=== PATIENT | female | born 1985 | race Caucasian/White ===

== ENCOUNTER 2016-11-22 13:45 | Emergency (ER) | payer OTHER ==
[~2016-11-22] VITALS: Ht 154.9 cm; Wt 132.9 kg
[~2016-11-22 13:45] MED LIST: ACET325T96 PO; BUSP15TA70 PO; IBUP-103 PO; LEVO200T6 PO; PRENTAB26 PO; TOPI100T20 PO
[2016-11-22 13:51] VITALS: TEMP 36.9; Ht 154.9 cm; Wt 132.9 kg
[2016-11-22] MEDS ORDERED: ATV1 PO (14:59)
[2016-11-22] MEDS ORDERED: WLLXL300 PO (14:59)
[2016-11-22] MEDS ORDERED: TRAZ100T29 PO (14:59)
[2016-11-22] MEDS ORDERED: KETOROLAC TROMETHAMINE 30 MG/ML VIAL IV STA (15:19)
[2016-11-22] MEDS ORDERED: SODIUM CHLORIDE 0.9% 1000ML 1,000 ML IV STA (15:19)
[2016-11-22 15:54] VITALS: O2SAT 97
[2016-11-22 15:55] LABS: BASO % 0.4 %; BASO ABS # 0.04 K/uL (0-0.2); COMPLETE YES; EOS % 2.4 %; HEMATOCRIT 41.7 % (37-47); IG% 0.7 %; LYMPH % 29.8 %; LYMPH ABS # 3.16 K/uL (1.2-3.4); MEAN CELL VOLUME 84.6 fL (80-100); MEAN CORPUSCULAR HEMOGLOBIN 28.6 pg (25-34); MEAN CORPUSCULAR HGB CONC 33.8 g/dl (32-36); MEAN PLATELET VOLUME 9.4 fL (7.4-10.4); MONO % 6.9 %; NEUT % 59.8 %; PLATELET COUNT 337 K/uL (130-400); RED BLOOD COUNT 4.93 M/uL (4.2-5.4); WHITE BLOOD COUNT 10.62 K/uL (4.8-10.8)
[2016-11-22 16:11] LABS: BUN/CREATININE RATIO 13.8 (10-20); CALCIUM 9.3 mg/dl (8.5-10.1); CREATININE 0.79 mg/dl (0.60-1.20); POTASSIUM 3.8 mmol/L (3.5-5.1)
--- NOTE | 2016-11-22 17:43 | DIAGNOSTIC IMAGING REPORT ---
BILATERAL LOWER EXTREMITY VENOUS DOPPLER HISTORY: Bilateral lower extremity pain COMPARISON STUDY: None. FINDINGS: There is normal compressibility, flow, and augmentation within the bilateral lower extremity deep venous systems. IMPRESSION: No DVT within the right or left lower extremity. Electronically signed by: Ernie South M.D. 11/22/2016 5:41 PM Dictated Date/Time: 11/22/2016 5:41 PM
--- NOTE | 2016-11-22 17:44 | DIAGNOSTIC IMAGING REPORT ---
PELVIC ULTRASOUND, TRANSABDOMINAL AND TRANSVAGINAL HISTORY: Lower abdominal pain. COMPARISON: None. FINDINGS: Uterus: 9.1 x 4.7 x 4.9 cm. There are few nabothian cysts. Endometrial stripe: Top normal in thickness measuring up to 1.3 cm. Right ovary: Normal in size and demonstrates normal color flow. A few small follicles/cysts. Left ovary: Normal in size and demonstrates normal color flow. A few small follicles/cysts. Miscellaneous:No pelvic free fluid. IMPRESSION: No significant abnormality identified within the pelvis. Electronically signed by: Ernie South M.D. 11/22/2016 5:43 PM Dictated Date/Time: 11/22/2016 5:41 PM
[2016-11-22] MEDS ORDERED: OXYCODONE HCL IR 5 MG TAB (IMMEDIATE RELEASE) PO STA (19:06)
[2016-11-22 19:35] LABS: URINE APPEARANCE TURBID (CLEAR); URINE COLOR ORANGE; URINE NITRITE POS (NEG); URINE PH 5.5 (4.5-7.5); URINE SPECIFIC GRAVITY 1.045 (1.000-1.030); UROBILINOGEN NEG (NEG)
[2016-11-22 19:37] LABS: MANUAL MICROSCOPIC REQUIRED? YES; REVIEW REQ? NO
[2016-11-22 19:44] LABS: URINE BILIRUBIN NEG (NEG)
[2016-11-22 19:46] LABS: URINE MUCUS PRESENT (NONE PRSENT)
[2016-11-22 19:47] LABS: URINE BACTERIA NEG (NEG); URINE RBC 0-4 /hpf (0-4)
[2016-11-22 19:48] LABS: URINE AMORPHOUS SEDIMENT PRESENT (NONE PRSENT)
--- NOTE | 2016-11-22 20:15 | DIAGNOSTIC IMAGING REPORT ---
ABDOMEN AND PELVIS CT WITHOUT CONTRAST CT DOSE: 2112.22 mGy.cm HISTORY: Hematuria - pelvic/low back pain TECHNIQUE: Multiaxial CT images of the abdomen and pelvis were performed without contrast. COMPARISON STUDY: Abdomen and pelvis CT 08/15/2015. FINDINGS: The lung bases are clear. No pneumoperitoneum. No pneumatosis. No fractures within the visualized osseous structures. Cholecystectomy. Hepatic steatosis. The unenhanced spleen, adrenal glands, pancreas, and kidneys are unremarkable. No renal stones or hydronephrosis. Retroperitoneal lymph nodes remain stable. These are subcentimeter in short axis diameter. The bladder is nondistended but appears unremarkable. The uterus is within normal limits. There are few small ovarian cysts with the largest on the left measuring 2 cm. No significant pelvic free fluid. Suboptimal evaluation for bowel pathology due to the lack of intravenous and oral contrast. However, there is no definite bowel wall thickening or obstruction. Colonic diverticulosis. Normal appendix. IMPRESSION: 1. No definite bowel wall thickening or obstruction. 2. Colonic diverticulosis. 3. Normal appendix. 4. Hepatic steatosis. 5. Cholecystectomy. 6. Bilateral ovarian cysts with the largest on the left measuring 2 cm. Electronically signed by: Ernie South M.D. 11/22/2016 8:14 PM Dictated Date/Time: 11/22/2016 8:05 PM
--- NOTE | 2016-11-22 20:30 | EMERGENCY ROOM VISIT NOTE ---
ED Visit Note First contact with patient: 15:06 Patient was seen by our PA/PROPERTY ADMINISTRATOR. I was involved in the patient's care and did evaluate the patient myself. I was involved in the care throughout the ER stay. The patient's laboratory workup reveals a possible urinary tract infection. Imaging does not show anything acutely surgical. The patient does not seem toxic and I do think can be discharged home. She can return for worsening symptoms.
[2016-11-22] MEDS ORDERED: NITR-5 PO (20:52)
[2016-11-22] MEDS ORDERED: ACET-749 PO (20:52)
--- NOTE | 2016-11-22 20:57 | EMERGENCY ROOM VISIT NOTE ---
History First contact with patient: 15:06 Chief Complaint: ABDOMINAL PAIN Stated Complaint: PAIN IN BOTH SIDES AND DOWN LEGS Nursing Triage Summary: Triage note: Pt ambulatory to triage. pt reports abd pain in both sides x several days. pt reports nausea and vomitting. History of Present Illness The patient is a 30 year old female who presents to the Emergency Room with complaints of lower abdominal pain and cramping in both legs. The patient reports that her symptoms have been ongoing for the past 2-3 days. She has had nausea and vomiting as well. She denies any urinary symptoms, constipation or diarrhea. The patient has a known history of endometriosis and ovarian cysts. The patient has had a bilateral salpingectomy and unilateral oophorectomy, site unknown. The surgery was performed at [facility]. She has had no further postoperative follow-up because of her insurance. She is scheduled to see an NURSE SPECIAL on 12/06/16. The patient reports that she has had worsening abdominal pain since her surgery, stating that the surgery "did not work". She also admits to a history of chronic lower back pain. Her last pain exacerbation was approximately 2-4 months ago. She denies any recent injury to her back. She denies any lower extremity weakness, foot drop, saddle paresthesias or difficulty with urination/bowel movements. She is concerned that she could have blood clots in her legs as her sister has had a prior history. She has not contacted her family doctor regarding her symptoms, and currently rates her discomfort a 10 out of 10. Review of Systems HEENT: Denies dizziness, visual problems, hearing loss, tinnitus. Denies difficulty swallowing or oral lesions. PULMONARY: Has had a recent nonproductive cough, but denies shortness of breath , sputum production or hemoptysis. CARDIOVASCULAR: Denies chest pain, palpitations, dyspnea on exertion, orthopnea or peripheral edema. GASTROINTESTINAL: Denies diarrhea, constipation, nausea, vomiting, or abdominal pain. GENITOURINARY: Denies dysuria, frequency, urgency or nocturia. NEUROLOGIC: Denies history of epilepsy, CVA, TIA or chronic headaches. MUSCULOSKELETAL: Denies history of joint tenderness/swelling. SKIN: Denies rashes or lesions. PSYCHIATRIC: History of ADHD and bipolar disorder. ENDOCRINE: Denies history of diabetes. Has a history of hypothyroidism. Past Medical/Surgical History Medical Problems: (1) Asthma (2) Attn Deficit W Hyperact (3) Bipolar Disorder, Unspecified (4) Endometriosis Nos (5) Hypothyroidism Nos (6) Morbid Obesity (7) Ovarian cyst (8) Polycystic Ovaries Surgical Problems: (1) History of cholecystectomy (2) S/P cholecystectomy Family History Blood clots Cancer Diabetes mellitus Gallbladder disease Headache Heart disease Hypertension Seizures Social History Smoking Status: Never Smoker Alcohol Use: occasionally Drug Use: none Marital Status: single Housing Status: lives alone Occupation Status: unemployed Current/Historical Medications Scheduled Bupropion HCl (Bupropion HCl Xl), 300 MG PO QAM Buspirone Hcl (Buspar), 15 MG PO TID Levothyroxine Sodium (Levothyroxine Sodium), 200 MCG PO DAILY Nitrofurantoin Monohyd Macrocr (Macrobid), 100 MG PO BID Topiramate (Topamax), 200 MG PO HS Trazodone Hcl (Trazodone), 100 MG PO HS Scheduled PRN Acetaminophen Tab (Tylenol), 650 MG PO Q6 PRN for Pain Acetaminophen/Codeine (Tylenol W/Codeine #3), 1-2 TABS PO q4-6h PRN for Pain Ibuprofen Tab (Advil), 400 MG PO Q6 PRN for Pain Lorazepam (Lorazepam), 1 MG PO BID PRN for Anxiety Allergies Coded Allergies: Wheat (Verified Allergy, Intermediate, HIVES, 09/18/16) Food Additives (Verified Allergy, Unknown, WHEAT, 09/18/16) Metformin (Verified Allergy, Unknown, UNKN, 09/18/16) Soy Allergy (Unverified Allergy, Unknown, unknown, 11/22/16) Penicillins (Verified Adverse Reaction, Intermediate, GI SYMPTOMS, 09/18/16 ) Morphine (Verified Adverse Reaction, Unknown, "makes me sick", 09/18/16) Physical Exam Vital Signs Date Time Temp Pulse Resp B/P Pulse Ox O2 Delivery O2 Flow Rate FiO2 11/22/16 21:25 69 20 132/89 99 11/22/16 19:19 66 20 135/94 95 Room Air 11/22/16 17:54 68 11/22/16 17:42 76 18 103/76 98 Room Air 11/22/16 15:54 97 Room Air 11/22/16 15:54 74 22 138/99 99 Room Air 11/22/16 13:51 36.9 90 18 156/92 100 Room Air Physical Exam CONSTITUTIONAL: Morbidly obese female, alert and oriented X 3 with positive affect. Patient is not. Any acute distress on my exam. HEENT: Normocephalic, atraumatic. Pupils equal, round and reactive. No scleral icterus or conjunctival injection/pallor. : No posterior pharyngeal erythema, tonsillar hypertrophy or exudates. NECK: Full active range of motion without discomfort. No JVD or carotid bruits. RESPIRATORY: Clear to auscultation bilaterally with no wheezing, crackles, rhonchi or stridor. CARDIOVASCULAR: Regular rate and rhythm with no murmurs, rubs or gallops. GASTROINTESTINAL: Bowel sounds present in all quadrants. Patient has mild and diffuse tenderness to palpation through the lower abdomen. Negative Rovsing sign. Negative heel tap. Negative psoas/obturator sign. Negative CVA tenderness. MUSCULOSKELETAL: Full range of motion of all joints without discomfort. Patient has mild tenderness to palpation through the lower back and SI joints. Negative logroll. Negative straight leg raise. No popliteal masses. No calf tenderness to palpation. Pedal pulses are intact. No obvious peripheral edema. Ankle plantar/dorsiflexion strength is 5 out of 5 and symmetric bilaterally. INTEGUMENTARY: No rash or other significant dermatologic conditions noted. HEMATOLOGIC: No ecchymosis or petechiae noted. NEUROLOGIC: Cranial nerves II-XII grossly intact. No focal neurologic deficits noted. Lower extremity deep tendon reflexes are 2+ and symmetric bilaterally. Medical Decision & Procedures ER Provider Diagnostic Interpretation: Bilateral lower extremity venous ultrasound shows no evidence for deep vein thromboses. Radiologist report is as follows: BILATERAL LOWER EXTREMITY VENOUS DOPPLER HISTORY: Bilateral lower extremity pain COMPARISON STUDY: None. FINDINGS: There is normal compressibility, flow, and augmentation within the bilateral lower extremity deep venous systems. IMPRESSION: No DVT within the right or left lower extremity. Pelvic ultrasound shows 2 ovaries with bilateral cysts. No other acute findings noted. Radiologist report is as follows: PELVIC ULTRASOUND, TRANSABDOMINAL AND TRANSVAGINAL HISTORY: Lower abdominal pain. COMPARISON: None. FINDINGS: Uterus: 9.1 x 4.7 x 4.9 cm. There are few nabothian cysts. Endometrial stripe: Top normal in thickness measuring up to 1.3 cm. Right ovary: Normal in size and demonstrates normal color flow. A few small follicles/cysts. Left ovary: Normal in size and demonstrates normal color flow. A few small follicles/cysts. Miscellaneous:No pelvic free fluid. IMPRESSION: No significant abnormality identified within the pelvis. Noncontrast CT of the abdomen and pelvis shows bilateral ovarian cysts. Otherwise, no acute obstruction, appendicitis or other acute findings noted. Radiologist report is as follows: ABDOMEN AND PELVIS CT WITHOUT CONTRAST CT DOSE: 2112.22 mGy.cm HISTORY: Hematuria - pelvic/low back pain TECHNIQUE: Multiaxial CT images of the abdomen and pelvis were performed without contrast. COMPARISON STUDY: Abdomen and pelvis CT 08/15/2015. FINDINGS: The lung bases are clear. No pneumoperitoneum. No pneumatosis. No fractures within the visualized osseous structures. Cholecystectomy. Hepatic steatosis. The unenhanced spleen, adrenal glands, pancreas, and kidneys are unremarkable. No renal stones or hydronephrosis. Retroperitoneal lymph nodes remain stable. These are subcentimeter in short axis diameter. The bladder is nondistended but appears unremarkable. The uterus is within normal limits. There are few small ovarian cysts with the largest on the left measuring 2 cm. No significant pelvic free fluid. Suboptimal evaluation for bowel pathology due to the lack of intravenous and oral contrast. However, there is no definite bowel wall thickening or obstruction. Colonic diverticulosis. Normal appendix. IMPRESSION: 1. No definite bowel wall thickening or obstruction. 2. Colonic diverticulosis. 3. Normal appendix. 4. Hepatic steatosis. 5. Cholecystectomy. 6. Bilateral ovarian cysts with the largest on the left measuring 2 cm. Laboratory Results 11/22/16 15:43 Red Blood Count 4.93, Mean Corpuscular Volume 84.6, Mean Corpuscular Hemoglobin 28.6, Mean Corpuscular Hemoglobin Concent 33.8, Mean Platelet Volume 9.4, Neutrophils (%) (Auto) 59.8, Lymphocytes (%) (Auto) 29.8, Monocytes (%) (Auto) 6.9, Eosinophils (%) (Auto) 2.4, Basophils (%) (Auto) 0.4, Neutrophils # (Auto) 6.36, Lymphocytes # (Auto) 3.16, Monocytes # (Auto) 0.73, Eosinophils # (Auto) 0.26, Basophils # (Auto) 0.04 11/22/16 15:43 Test 11/22/16 15:43 11/22/16 19:21 White Blood Count 10.62 K/uL (4.8-10.8) Red Blood Count 4.93 M/uL (4.2-5.4) Hemoglobin 14.1 g/dL (12.0-16.0) Hematocrit 41.7 % (37-47) Mean Corpuscular Volume 84.6 fL (80-100) Mean Corpuscular Hemoglobin 28.6 pg (25-34) Mean Corpuscular Hemoglobin Concent 33.8 g/dl (32-36) Platelet Count 337 K/uL (130-400) Mean Platelet Volume 9.4 fL (7.4-10.4) Neutrophils (%) (Auto) 59.8 % Lymphocytes (%) (Auto) 29.8 % Monocytes (%) (Auto) 6.9 % Eosinophils (%) (Auto) 2.4 % Basophils (%) (Auto) 0.4 % Neutrophils # (Auto) 6.36 K/uL (1.4-6.5) Lymphocytes # (Auto) 3.16 K/uL (1.2-3.4) Monocytes # (Auto) 0.73 K/uL (0.11-0.59) Eosinophils # (Auto) 0.26 K/uL (0-0.5) Basophils # (Auto) 0.04 K/uL (0-0.2) RDW Standard Deviation 41.5 fL (36.4-46.3) RDW Coefficient of Variation 13.6 % (11.5-14.5) Immature Granulocyte % (Auto) 0.7 % Immature Granulocyte # (Auto) 0.07 K/uL (0.00-0.02) Anion Gap 9.0 mmol/L (3-11) Est Creatinine Clear Calc Drug Dose 132.0 ml/min Estimated GFR () 114.8 Estimated GFR (Non- 99.1 BUN/Creatinine Ratio 13.8 (10-20) Calcium Level 9.3 mg/dl (8.5-10.1) Total Bilirubin 0.4 mg/dl (0.2-1) Direct Bilirubin 0.2 mg/dl (0-0.2) Aspartate Amino Transf (AST/SGOT) 41 U/L (15-37) Alanine Aminotransferase (ALT/SGPT) 101 U/L (12-78) Alkaline Phosphatase 111 U/L (45-117) Total Protein 7.6 gm/dl (6.4-8.2) Albumin 3.8 gm/dl (3.4-5.0) Lipase 162 U/L (73-393) Urine Color ORANGE Urine Appearance TURBID (CLEAR) Urine pH 5.5 (4.5-7.5) Urine Specific [place] 1.045 (1.000-1.030) Urine Protein 1+ (NEG) Urine Glucose (UA) NEG (NEG) Urine Ketones NEG (NEG) Urine Occult Blood 1+ (NEG) Urine Nitrite POS (NEG) Urine Bilirubin NEG (NEG) Urine Urobilinogen NEG (NEG) Urine Leukocyte Esterase TRACE (NEG) Urine WBC (Auto) /hpf (0-5) Urine RBC (Auto) /hpf (0-4) Urine Hyaline Casts (Auto) /lpf (0-5) Urine Epithelial Cells (Auto) /lpf (0-5) Urine Bacteria (Auto) (NEG) Urine RBC 0-4 /hpf (0-4) Urine WBC 10-30 /hpf (0-5) Urine Epithelial Cells >30 /lpf (0-5) Urine Amorphous Sediment PRESENT (NONE PRSENT) Urine Bacteria NEG (NEG) Urine Pathogenic Casts /lpf (0) Urine Mucus PRESENT (NONE PRSENT) Urine Yeast (Auto) (NONE PRSENT) The above labs were reviewed. CBC, partial renal profile and lipase are normal. She does have an elevated AST and ALT. Urinalysis shows no hematuria, but does have white cells and bacteria present. A urine culture was ordered. Medications Administered Medications (Trade) Dose Ordered Sig/García Route Start Time Stop Time Status Last Admin Dose Admin Sodium Chloride (Nss 1000ml) 1,000 ml @ 999 mls/hr Q1H1M STAT IV 11/22/16 15:19 11/22/16 16:19 DC 11/22/16 15:19 999 MLS/HR Ketorolac Tromethamine (Toradol Inj) 30 mg NOW STAT IV 11/22/16 15:19 11/22/16 15:25 DC 11/22/16 15:56 30 MG Oxycodone HCl (Roxicodone Immediate Rel Tab) 5 mg NOW STAT PO 11/22/16 19:06 11/22/16 19:07 DC 11/22/16 19:17 5 MG Nitrofurantoin (Macrobid Homepack 100MG) 1 homepack UD ONCE PO 11/22/16 21:15 11/22/16 21:16 DC 11/22/16 21:19 1 HOMEPACK Acetaminophen/ Codeine Phosphate (TYLENOL W/ CODEINE #3 Home Pack) 1 homepack UD ONCE PO 11/22/16 21:15 11/22/16 21:16 DC 11/22/16 21:19 1 HOMEPACK Procedure 1. IV hydration: The patient received a liter normal saline bolus 2. IV medications: The patient was initially administered Toradol 30 mg IVP. The patient had persistent pain, and requested something stronger. She was administered OxyIR 5 mg orally. ED Course Patient history and physical exam were performed. Nurse's notes were reviewed. Vital signs were reviewed. The patient is hypertensive with a blood pressure 156/92. O2 saturation is 100% on room air, and the patient is afebrile. I did discuss several different causes for her pain, including lumbar radiculitis and complications with her history of pelvic disease. Her clinical exam is not consistent with acute appendicitis, so I elected to defer CT after initial exam. I did suggest performing ultrasounds studies to rule out DVT and other acute intrapelvic etiology. IV access was established and labs were drawn. The patient was hydrated with normal saline, and received IV Toradol for pain. Review of labs shows elevated LFTs, otherwise remaining labs were normal. Urinalysis is suggestive of infection. Urine culture was ordered. Bilateral lower extremity venous Dopplers were normal, showing no evidence for DVT. Pelvic ultrasound shows bilateral ovarian cysts without any other acute findings. Noncontrast CT of the abdomen and pelvis also did not show any significant findings. The case was discussed with Dr. Garza, who suggested treating the patient with an antibiotic, Pyridium, antiemetic and analgesic. The patient was provided prescriptions for Macrobid, Pyridium, Zofran ODT and OxyIR 5 mg. She was encouraged to also alternate ibuprofen and Tylenol for baseline pain relief. She was instructed to contact her PCP for reevaluation in the next 2-3 days. Return to the emergency department for any significantly worsening symptoms. The patient was happy with plan of care, and voiced understanding of all discharge instructions, rating her discomfort a 2 out of 10 at the time of discharge. Medical Decision The patient presents to the emergency department with complaint of lower abdominal pain and pain in bilateral thighs. She was mostly concerned for the possibility of DVTs. Her ultrasound was normal. She does complain of some mild urinary symptoms, and urinalysis is mildly suggestive of UTI. Her ultrasound does not show any acute pelvic etiologies, and noncontrast CT of the abdomen was also normal, showing no evidence for stones. Musculoskeletal etiology was also entertained with the patient's history of chronic lower back pain. The patient is afebrile and has no leukocytosis to suggest infectious etiology. At this point I do feel that outpatient management is acceptable. Impression Primary Impression: UTI (urinary tract infection) Additional Impression: Abdominal pain in female patient Departure Information Prescriptions Acetaminophen/Codeine (Tylenol W/Codeine #3) 300 Mg/30 Mg Tab 1-2 TABS PO q4-6h Y for Pain, #30 TAB For Initial Treatment Prov: Tacho Rangel PA 11/22/16 Nitrofurantoin Monohyd Macrocr (Macrobid) 100 Mg Cap 100 MG PO BID for 7 Days, #14 CAP Prov: Tacho Rangel PA 11/22/16 Referrals Stephenie Parker M.D. (MEDICAL) (PCP) Patient Instructions A Signature Page Problem Qualifiers Primary Impression: UTI (urinary tract infection) Urinary tract infection type: site unspecified Hematuria presence: with hematuria Qualified Codes: N39.0 - Urinary tract infection, site not specified ; R31.9 - Hematuria, unspecified
[2016-11-22] MEDS ORDERED: MACROBID 100MG HOME PACK 1 EA VIAL PO ONE (21:15)
[2016-11-22] MEDS ORDERED: TYLENOL #3 HOME PACK PO ONE (21:15)
[2016-11-22 21:25] VITALS: BP 132/89; PULSE 69; O2SAT 99
== END 2016-11-22 21:29 | disposition home or self-care (01) ==
LOC: C.EDB 13:46
DX: N39.0 Urinary tract infection, site not specified (principal); E03.9 Hypothyroidism, unspecified; F31.9 Bipolar disorder, unspecified; E66.01 Morbid (severe) obesity due to excess calories; R11.2 Nausea with vomiting, unspecified; M79.605 Pain in left leg; M79.604 Pain in right leg; Z87.42 Personal history of other diseases of the female genital tract; Z79.899 Other long term (current) drug therapy; Z88.5 Allergy status to narcotic agent; Z83.2 Family history of diseases of the blood and blood-forming organs and certain disorders involving the immune mechanism; Z83.3 Family history of diabetes mellitus; Z82.49 Family history of ischemic heart disease and other diseases of the circulatory system; Z82.0 Family history of epilepsy and other diseases of the nervous system

== ENCOUNTER 2017-01-27 16:47 | Emergency (ER) | payer OTHER ==
[~2017-01-27] VITALS: Ht 157.5 cm; Wt 138.9 kg
[~2017-01-27 16:47] MED LIST changes: +ACET-749 PO; +ATV1 PO; -PRENTAB26 PO; +TRAZ100T29 PO; +WLLXL300 PO
[2017-01-27 16:50] VITALS: TEMP 36.9; Ht 157.5 cm; Wt 138.9 kg
[2017-01-27] MEDS ORDERED: ONDANSETRON INJ 2 MG/ML 2 ML VIAL IV STA ×2 (17:56→21:24)
[2017-01-27] MEDS ORDERED: SODIUM CHLORIDE 0.9% 1000ML 1,000 ML IV STA (17:56)
[2017-01-27] MEDS ORDERED: KETOROLAC TROMETHAMINE 30 MG/ML VIAL IV STA (17:56)
[2017-01-27] MEDS ORDERED: DANA200C PO (18:02)
[2017-01-27 18:32] LABS: BASO % 0.4 %; BASO ABS # 0.05 K/uL (0-0.2); COMPLETE YES; EOS % 2.4 %; HEMATOCRIT 44.8 % (37-47); IG% 0.8 %; LYMPH % 30.4 %; LYMPH ABS # 3.97 K/uL (1.2-3.4); MEAN CELL VOLUME 88.4 fL (80-100); MEAN CORPUSCULAR HEMOGLOBIN 28.6 pg (25-34); MEAN CORPUSCULAR HGB CONC 32.4 g/dl (32-36); MEAN PLATELET VOLUME 9.4 fL (7.4-10.4); MONO % 8.4 %; NEUT % 57.6 %; PLATELET COUNT 392 K/uL (130-400); RED BLOOD COUNT 5.07 M/uL (4.2-5.4); WHITE BLOOD COUNT 13.08 K/uL (4.8-10.8)
[2017-01-27 18:50] LABS: BUN/CREATININE RATIO 11.9 (10-20); CALCIUM 8.7 mg/dl (8.5-10.1); POTASSIUM 3.9 mmol/L (3.5-5.1)
[2017-01-27 18:53] LABS: ALB/GLOB RATIO 0.8 (0.9-2)
[2017-01-27] MEDS ORDERED: OPTIRAY 320 IV PRN (20:15)
[2017-01-27 20:24] LABS: MANUAL MICROSCOPIC REQUIRED? NO; REVIEW REQ? YES; URINE APPEARANCE CLOUDY (CLEAR); URINE BILIRUBIN NEG (NEG); URINE COLOR YELLOW; URINE EPITHELIAL CELL AUTO >30 /lpf (0-5); URINE NITRITE NEG (NEG); URINE PH 6.5 (4.5-7.5); URINE SPECIFIC GRAVITY 1.035 (1.000-1.030); UROBILINOGEN NEG (NEG)
--- NOTE | 2017-01-27 20:53 | DIAGNOSTIC IMAGING REPORT ---
ABDOMEN AND PELVIS CT WITH IV CONTRAST CT DOSE: 1842.82 mGy.cm HISTORY: Flank pain left flank pain TECHNIQUE: Multiaxial CT images of the abdomen and pelvis were performed following the use of intravenous contrast. COMPARISON STUDY: 11/22/2016 FINDINGS: The lung bases are clear. The liver, spleen, gallbladder, pancreas, kidneys, and adrenal glands are within normal limits. No bowel wall thickening or obstruction. Prior cholecystectomy. Kidneys negative for hydronephrosis. Bowel pattern is nonobstructive. Several scattered colonic diverticuli. Bilateral ovarian cysts. On the Left this measures 4.5 cm. On the right this measures 3.0 cm. Uterus is anteflexed. Bladder is midline. IMPRESSION: 1. Bilateral ovarian cysts. 2. These measure 4.5 cm on the left and 3.0 cm on the right. 3. Otherwise negative study abdomen and pelvis Electronically signed by: Yobani Stevens M.D. 01/27/2017 8:52 PM Dictated Date/Time: 01/27/2017 8:49 PM
[2017-01-27] MEDS ORDERED: HYDROmorphone INJ 0.5 MG/0.5 ML SYR IV STA (21:24)
[2017-01-27] MEDS ORDERED: NORCO 5/325MG HOME PACK PO ONE (22:15)
--- NOTE | 2017-01-27 22:17 | EMERGENCY ROOM VISIT NOTE ---
History First contact with patient: 17:28 Chief Complaint: ABDOMINAL PAIN Stated Complaint: LF SIDE PAIN & DOWN LF LEGS History of Present Illness Patient is a 31-year-old white female with past medical history significant for polycystic ovarian syndrome, hypertension, asthma, hypothyroidism, history of ovarian cysts and endometriosis and status post cholecystectomy and bilateral salpingectomy who presents to the emergency department for evaluation of left- sided abdominal pain 3 days. She states the pain was located in the left side of her abdomen. It was dull and achy in nature and did not radiate. Initially , she states the pain was alleviated with Tylenol and ibuprofen. Last evening, she developed nausea, after eating her normal foods. She vomited 2 last night and again 2 today. She states that the pain began to radiate toward the left thigh today. She states the pain is now worse and not alleviated with Tylenol or ibuprofen. She presently rates it a 10/10. She notes urinary frequency, and feels like she is not emptying her bladder completely. She reports her last bowel movement was normal and was yesterday. She denies any melena or hematochezia. She denies feeling constipated. No hematemesis. She is sexually active and denies dyspareunia. No vaginal discharge or concern for sexually transmitted infections. She has a history of chronic low back pain, but denies low back pain at the present time. No numbness, tingling or weakness into the lower extremities. No bowel or bladder incontinence. Review of Systems Review of systems as per HPI. All other systems reviewed were negative. 10 systems reviewed. Past Medical/Surgical History Medical Problems: (1) Acute bronchitis (2) Asthma (3) Attn Deficit W Hyperact (4) Bipolar Disorder, Unspecified (5) Depression (6) Endometriosis Nos (7) Hyperglycemia (8) Hypertension (9) Hypothyroidism Nos (10) Lumbago (11) Morbid Obesity (12) Ovarian cyst (13) Polycystic Ovaries Surgical Problems: (1) History of bilateral salpingectomy (2) History of cholecystectomy (3) History of ovarian cystectomy (4) History of thyroidectomy (5) S/P cholecystectomy Electronic medical records are reviewed and summarized as above/below. See Problem List. Family History Blood clots Cancer Diabetes mellitus Gallbladder disease Headache Heart disease Hypertension Seizures Social History Smoking Status: Never Smoker Alcohol Use: occasionally Drug Use: none Marital Status: single Housing Status: lives alone Occupation Status: unemployed Current/Historical Medications Scheduled Bupropion HCl (Bupropion HCl Xl), 300 MG PO QAM Buspirone Hcl (Buspar), 15 MG PO TID Danazol (Danazol), 200 MG PO DAILY Levothyroxine Sodium (Levothyroxine Sodium), 200 MCG PO DAILY Topiramate (Topamax), 200 MG PO HS Trazodone Hcl (Trazodone), 100 MG PO HS Scheduled PRN Acetaminophen Tab (Tylenol), 650 MG PO Q6 PRN for Pain Acetaminophen/Codeine (Tylenol W/Codeine #3), 1-2 TABS PO q4-6h PRN for Pain Ibuprofen Tab (Advil), 400 MG PO Q6 PRN for Pain Lorazepam (Lorazepam), 1 MG PO BID PRN for Anxiety Allergies Coded Allergies: Wheat (Verified Allergy, Intermediate, HIVES, 09/18/16) Food Additives (Verified Allergy, Unknown, WHEAT, 09/18/16) Metformin (Verified Allergy, Unknown, UNKN, 09/18/16) Soy Allergy (Unverified Allergy, Unknown, unknown, 11/22/16) Penicillins (Verified Adverse Reaction, Intermediate, GI SYMPTOMS, 09/18/16 ) Morphine (Verified Adverse Reaction, Unknown, "makes me sick", 09/18/16) Physical Exam Vital Signs Date Time Temp Pulse Resp B/P Pulse Ox O2 Delivery O2 Flow Rate FiO2 01/27/17 22:40 90 16 140/99 98 01/27/17 20:48 91 20 133/79 01/27/17 18:22 83 18 133/90 98 Room Air 01/27/17 16:50 36.9 97 20 167/100 98 Room Air Physical Exam CONSTITUTIONAL: Patient is a morbidly obese 31-year-old white female who is awake and alert and laying on the gurney in no acute distress. EYES: Pupils equal, round, reactive to light and accommodation. EOMs intact without nystagmus. Sclera are anicteric. ENT: Tympanic membranes intact, with normal landmarks. External canals are clear. Oral and nasopharynx are clear. Mucous membranes are moist, no lesions , tongue and gums appear normal. NECK: No bruits auscultated. Supple without lymphadenopathy. No thyromegaly. No meningeal signs. Full active range of motion without discomfort. CARDIOVASCULAR: Regular rate and rhythm, with normal S1 and S2, no murmur or gallop or rub is heard. No carotid bruits auscultated. No JVD. Peripheral pulses easy to palpable. RESPIRATORY: Breath sounds equal and clear to auscultation without wheezes, rales, or rhonchi heard. Full and equal chest expansion without accessory muscle use or retractions. GI: Bowel sounds are present. Multiple well-healed surgical scars are noted. Abdomen is soft, obese, nondistended, tender in the left lower abdomen without guarding, rebound or rigidity. Exam is difficult due to patient's large body habitus. MUSCULOSKELETAL: Full range of motion of extremities x 4 with good strength. No cyanosis, edema, joint tenderness or swelling. No deformity. INTEGUMENTARY: No lesions or rash, normal skin turgor. NEUROLOGICAL: Alert, oriented, and cooperative. Cranial nerves, sensation and strength grossly intact. Pupils round, equal, and react to light, EOMs are full. LYMPH: No lymphadenopathy. Medical Decision & Procedures ER Provider Diagnostic Interpretation: ABDOMEN AND PELVIS CT WITH IV CONTRAST CT DOSE: 1842.82 mGy.cm HISTORY: Flank pain left flank pain TECHNIQUE: Multiaxial CT images of the abdomen and pelvis were performed following the use of intravenous contrast. COMPARISON STUDY: 11/22/2016 FINDINGS: The lung bases are clear. The liver, spleen, gallbladder, pancreas, kidneys, and adrenal glands are within normal limits. No bowel wall thickening or obstruction. Prior cholecystectomy. Kidneys negative for hydronephrosis. Bowel pattern is nonobstructive. Several scattered colonic diverticuli. Bilateral ovarian cysts. On the Left this measures 4.5 cm. On the right this measures 3.0 cm. Uterus is anteflexed. Bladder is midline. IMPRESSION: 1. Bilateral ovarian cysts. 2. These measure 4.5 cm on the left and 3.0 cm on the right. 3. Otherwise negative study abdomen and pelvis Laboratory Results 01/27/17 18:20 Red Blood Count 5.07, Mean Corpuscular Volume 88.4, Mean Corpuscular Hemoglobin 28.6, Mean Corpuscular Hemoglobin Concent 32.4, Mean Platelet Volume 9.4, Neutrophils (%) (Auto) 57.6, Lymphocytes (%) (Auto) 30.4, Monocytes (%) (Auto) 8.4, Eosinophils (%) (Auto) 2.4, Basophils (%) (Auto) 0.4, Neutrophils # (Auto) 7.54, Lymphocytes # (Auto) 3.97, Monocytes # (Auto) 1.10, Eosinophils # (Auto) 0.31, Basophils # (Auto) 0.05 01/27/17 18:20 Test 01/27/17 18:20 White Blood Count 13.08 K/uL (4.8-10.8) Red Blood Count 5.07 M/uL (4.2-5.4) Hemoglobin 14.5 g/dL (12.0-16.0) Hematocrit 44.8 % (37-47) Mean Corpuscular Volume 88.4 fL (80-100) Mean Corpuscular Hemoglobin 28.6 pg (25-34) Mean Corpuscular Hemoglobin Concent 32.4 g/dl (32-36) Platelet Count 392 K/uL (130-400) Mean Platelet Volume 9.4 fL (7.4-10.4) Neutrophils (%) (Auto) 57.6 % Lymphocytes (%) (Auto) 30.4 % Monocytes (%) (Auto) 8.4 % Eosinophils (%) (Auto) 2.4 % Basophils (%) (Auto) 0.4 % Neutrophils # (Auto) 7.54 K/uL (1.4-6.5) Lymphocytes # (Auto) 3.97 K/uL (1.2-3.4) Monocytes # (Auto) 1.10 K/uL (0.11-0.59) Eosinophils # (Auto) 0.31 K/uL (0-0.5) Basophils # (Auto) 0.05 K/uL (0-0.2) RDW Standard Deviation 44.8 fL (36.4-46.3) RDW Coefficient of Variation 13.9 % (11.5-14.5) Immature Granulocyte % (Auto) 0.8 % Immature Granulocyte # (Auto) 0.11 K/uL (0.00-0.02) Urine Color YELLOW Urine Appearance CLOUDY (CLEAR) Urine pH 6.5 (4.5-7.5) Urine Specific [place] 1.035 (1.000-1.030) Urine Protein NEG (NEG) Urine Glucose (UA) NEG (NEG) Urine Ketones NEG (NEG) Urine Occult Blood NEG (NEG) Urine Nitrite NEG (NEG) Urine Bilirubin NEG (NEG) Urine Urobilinogen NEG (NEG) Urine Leukocyte Esterase MODERATE (NEG) Urine WBC (Auto) 10-30 /hpf (0-5) Urine RBC (Auto) 5-10 /hpf (0-4) Urine Hyaline Casts (Auto) 1-5 /lpf (0-5) Urine Epithelial Cells (Auto) >30 /lpf (0-5) Urine Bacteria (Auto) 2+ (NEG) Urine Test NEG (NEG) Anion Gap 6.0 mmol/L (3-11) Est Creatinine Clear Calc Drug Dose 108.2 ml/min Estimated GFR () 85.7 Estimated GFR (Non- 74.0 BUN/Creatinine Ratio 11.9 (10-20) Calcium Level 8.7 mg/dl (8.5-10.1) Total Bilirubin 0.2 mg/dl (0.2-1) Aspartate Amino Transf (AST/SGOT) 30 U/L (15-37) Alanine Aminotransferase (ALT/SGPT) 104 U/L (12-78) Alkaline Phosphatase 84 U/L (45-117) Total Protein 7.5 gm/dl (6.4-8.2) Albumin 3.4 gm/dl (3.4-5.0) Globulin 4.1 gm/dl (2.5-4.0) Albumin/Globulin Ratio 0.8 (0.9-2) Lipase 178 U/L (73-393) Medications Administered Medications (Trade) Dose Ordered Sig/García Route Start Time Stop Time Status Last Admin Dose Admin Sodium Chloride (Nss 1000ml) 1,000 ml @ 999 mls/hr Q1H1M STAT IV 01/27/17 17:56 01/27/17 18:56 DC 01/27/17 18:21 999 MLS/HR Ondansetron HCl (Zofran Inj) 4 mg NOW STAT IV 01/27/17 17:56 01/27/17 17:58 DC 01/27/17 18:21 4 MG Ketorolac Tromethamine (Toradol Inj) 30 mg NOW STAT IV 01/27/17 17:56 18 17:58 DC 01/27/17 18:21 30 MG Hydromorphone HCl (Dilaudid Inj) 0.5 mg NOW STAT IV 01/27/17 21:24 01/27/17 21:25 DC 01/27/17 21:31 0.5 MG Ondansetron HCl (Zofran Inj) 4 mg NOW STAT IV 01/27/17 21:24 01/27/17 21:25 DC 01/27/17 21:31 4 MG Acetaminophen/ Hydrocodone Bitart ([place] 5/325mg Home Pack) 1 homepack UD ONCE PO 01/27/17 22:15 01/27/17 22:16 DC 01/27/17 22:37 1 HOMEPACK ED Course Patient was seen and examined as above. Her old records were reviewed. IV access was obtained and laboratory studies were collected. Patient was hydrated with normal saline solution. She was medicated with Zofran 4 mg and Toradol 30 mg IV, which did give her good relief of her discomfort. CBC with differential, CMP, lipase, urinalysis and urine test were performed. Laboratory studies revealed a white count of 13,000, with left shift and bandemia noted. Her white count typically does run slightly elevated upon review of her old labs. Electrolytes and renal functions are within normal limits. Liver functions are not elevated. Lipase is normal. Urinalysis noted moderate leukocyte Estrace and WBCs. 5-10 rbc's. 2+ bacteria in a sample that is likely contaminated with greater than 30 epithelial cells. Urine test is negative. Given her complaints however urine culture is ordered and is pending. Patient's pain returned and she was medicated with Zofran 4 mg and Dilaudid 0.[address] scan of the abdomen pelvis with IV contrast was ordered. CT noted bilateral ovarian cysts, measuring 4.5 cm on the left and 3 cm on the right. Otherwise there was no evidence for bowel obstruction, perforation or hydronephrosis. No bowel wall thickening. Postsurgical changes are noted. The patient was reassessed and made aware of the results of her workup. I suspect her pain is related to the left ovarian cyst. Differential diagnoses entertained included UTI, pyelonephritis, renal colic, bowel section, perforation, constipation, ovarian cyst, ovarian torsion, PID, tubo-ovarian abscess, , ectopic , among others. The patient was encouraged to follow-up with gynecology for further care and evaluation. She was given a [place] home pack. We will contact her if her urinalysis prior to treatment. The patient rated her pain a 0/10 at discharge. Family member was driving. Medical Decision See ED course Impression Primary Impression: Bilateral ovarian cysts Departure Information Referrals Stephenie Parker M.D. (MEDICAL) (PCP) Patient Instructions My [facility] [place] Additional Instructions DO NOT drive, drink alcohol, operate machinery, or perform dangerous activities today. You were given medications in the ER that can affect your ability to safely function or operate a vehicle. Hydrocodone/Acetaminophen ([place]) 5/325 mg: Take 1-2 pills every four hours for breakthrough pain. Avoid alcohol, operating machinery or dangerous equipment, working on ladders or roofs, DRIVING, or situations where being under the influence may be dangerous. It is recommended to use an gbjn-hjz-vwldwpo stool softener such as Colace, 100mg twice daily while taking this medication to avoid constipation. Ibuprofen(Motrin, Advil) may be used for fever or pain. Use 600mg every six hours as needed. Take with food. Avoid using more than 2400mg in a 24 hour period. Do not use 2400mg per day for more than three consecutive days without physician direction. Prolonged inappropriate use can lead to stomach upset or ulcers. This is available over the counter and typically comes in 200mg tablets. (AND/OR) Acetaminophen(Tylenol) may be used for fever or pain. Use 1000mg every eight hours as needed. Avoid using more than 3000mg in a 24 hour period. This is available over the counter. Heating pad to the abdomen as needed for discomfort. Read all the package inserts or medication information paperwork provided. If you have any questions or concerns call your primary provider, pharmacist or the ER for assistance. Rest and drink plenty of fluids as tolerated. Slow sips of water or sports drinks are recommended instead of large amounts all at once. Continue current medications. Once your stomach is settled start with a clear liquid diet (jello, soup broth, etc.) and then advance as tolerated. You should avoid full, heavy meals for about 24 hrs from the time your symptoms resolved. Return to the ER immediately for worsening or persistent abdominal pain, vomiting, fevers, chest pains, difficulty breathing, black or bloody stools, worsening of your condition, or as needed. 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
--- NOTE | 2017-01-27 22:31 | EMERGENCY ROOM VISIT NOTE ---
ED Visit Note First contact with patient: 17:28 I have personally evaluated and examined this patient. I agree with assessment and plan of Wanda German PA-C. Left flank pain radiating to leg with non- specific exam.
[2017-01-27 22:40] VITALS: BP 140/99; PULSE 90; O2SAT 98
== END 2017-01-27 22:53 | disposition home or self-care (01) ==
LOC: C.EDB 16:48 → C.EDC 22:53
DX: N83.201 Unspecified ovarian cyst, right side (principal); N83.202 Unspecified ovarian cyst, left side; J45.909 Unspecified asthma, uncomplicated; F90.0 Attention-deficit hyperactivity disorder, predominantly inattentive type; F31.9 Bipolar disorder, unspecified; E03.9 Hypothyroidism, unspecified; Z90.49 Acquired absence of other specified parts of digestive tract; R11.10 Vomiting, unspecified

== ENCOUNTER 2017-07-11 01:36 | Emergency (ER) | payer OTHER ==
[~2017-07-11] VITALS: Ht 154.9 cm; Wt 139.3 kg
[~2017-07-11 01:36] MED LIST changes: -ACET-749 PO; +DANA200C PO
[2017-07-11 01:41] VITALS: TEMP 36.5; Ht 154.9 cm; Wt 139.3 kg
[2017-07-11] MEDS ORDERED: SODIUM CHLORIDE 0.9% 1000ML 1,000 ML IV STA (02:18)
[2017-07-11] MEDS ORDERED: KETOROLAC TROMETHAMINE 30 MG/ML VIAL IV STA (02:18)
[2017-07-11 02:53] LABS: BASO % 0.4 %; BASO ABS # 0.04 K/uL (0-0.2); COMPLETE YES; EOS % 3.4 %; HEMATOCRIT 43.3 % (37-47); IG% 0.4 %; LYMPH % 42.3 %; LYMPH ABS # 4.11 K/uL (1.2-3.4); MEAN CELL VOLUME 85.9 fL (80-100); MEAN CORPUSCULAR HEMOGLOBIN 28.4 pg (25-34); MEAN PLATELET VOLUME 9.4 fL (7.4-10.4); MONO % 6.2 %; NEUT % 47.3 %; PLATELET COUNT 334 K/uL (130-400); RED BLOOD COUNT 5.04 M/uL (4.2-5.4); WHITE BLOOD COUNT 9.72 K/uL (4.8-10.8)
[2017-07-11 03:17] LABS: ALT/SGPT 51 U/L (12-78); AST/SGOT 16 U/L (15-37); BLOOD UREA NITROGEN 13 mg/dl (7-18); BUN/CREATININE RATIO 16.1 (10-20); CALCIUM 9.1 mg/dl (8.5-10.1); CARBON DIOXIDE 31 mmol/L (21-32); CHLORIDE 105 mmol/L (98-107); CREATININE 0.81 mg/dl (0.60-1.20); GLUCOSE 100 mg/dl (70-99); POTASSIUM 3.9 mmol/L (3.5-5.1); SODIUM 138 mmol/L (136-145)
[2017-07-11 03:28] LABS: ALKALINE PHOSPHATASE 82 U/L (45-117)
[2017-07-11 04:24] VITALS: BP 146/95; PULSE 84; O2SAT 95
--- NOTE | 2017-07-11 04:24 | EMERGENCY ROOM VISIT NOTE ---
History Report prepared by Jonel: Kendrick Schmitt Under the Supervision of: Dr. Kristi Fulton M.D. First contact with patient: 01:43 Chief Complaint: LEG PAIN,LEG INJURY Stated Complaint: PAIN IN BOTH LEGS History of Present Illness The patient is a 31 year old female who presents to the Emergency Room with complaints of intermittent bilateral leg pain beginning a week ago. She localizes the pain to in her calves. She also complains of headaches, chest pain , intermittent dizziness, and intermittent bilateral leg numbness. The patient states that her legs hurt simultaneously when the pain is present. Her pain is worsened with walking. She notes that her legs have been bruising very easily. The patient notes that she is scheduled to see her PCP later this week. She states that all of her symptoms began around the same time. She denies any cough , or SOB. The patient is not on control. She has taken Tylenol , Naproxen , and ibuprofen for her symptoms, but nothing has improved her pain. She notes that she is on disability for depression and anxiety. The patient has a history of a thyroidectomy and takes synthetic thyroid hormones. She states that she has not been taking her psychiatric medications because they are reacting with her thyroid medication, and states that she is currently in the process of getting them changed. She has a family history of blood clots. Source of History: patient Onset: One week ago Position: leg (bilateral) Timing: intermittent Modifying Factors (Worsening): other (walking) Modifying Factors (Relieving): other (none) Associated Symptoms: + headache, + chest pain, + numbness (intermittent bilateral legs), No cough, No SOB Note: Additional symptoms: intermittent dizziness. Review of Systems See HPI for pertinent positives & negatives. A total of 10 systems reviewed and were otherwise negative. Past Medical & Surgical Medical Problems: (1) Acute bronchitis (2) Asthma (3) Attn Deficit W Hyperact (4) Bipolar Disorder, Unspecified (5) Depression (6) Endometriosis Nos (7) Hyperglycemia (8) Hypertension (9) Hypothyroidism Nos (10) Lumbago (11) Morbid Obesity (12) Ovarian cyst (13) Polycystic Ovaries Surgical Problems: (1) History of bilateral salpingectomy (2) History of cholecystectomy (3) History of ovarian cystectomy (4) History of thyroidectomy (5) S/P cholecystectomy Family History Blood clots Cancer Diabetes mellitus Gallbladder disease Headache Heart disease Hypertension Seizures Social History Smoking Status: Never Smoker Alcohol Use: occasionally Drug Use: none Marital Status: single Housing Status: lives alone Occupation Status: unemployed Current/Historical Medications Scheduled Levothyroxine Sodium (Levothyroxine Sodium), 200 MCG PO DAILY Scheduled PRN Acetaminophen Tab (Tylenol), 650 MG PO Q6 PRN for Pain Ibuprofen Tab (Advil), 400 MG PO Q6 PRN for Pain Allergies Coded Allergies: Wheat (Verified Allergy, Intermediate, HIVES, 07/11/17) Food Additives (Verified Allergy, Unknown, WHEAT, 07/11/17) Metformin (Verified Allergy, Unknown, UNKN, 07/11/17) Soy Allergy (Unverified Allergy, Unknown, unknown, 07/11/17) Penicillins (Verified Adverse Reaction, Intermediate, GI SYMPTOMS, 07/11/17 ) Morphine (Verified Adverse Reaction, Unknown, "makes me sick", 07/11/17) Physical Exam Vital Signs Date Time Temp Pulse Resp B/P (MAP) Pulse Ox O2 Delivery O2 Flow Rate FiO2 07/11/17 04:24 84 20 146/95 95 07/11/17 03:38 77 20 147/103 96 Room Air 07/11/17 02:42 77 07/11/17 01:41 36.5 71 20 165/73 97 Room Air Physical Exam Vital signs reviewed. General: Obese, disheveled, malodorous, generally well-appearing female, in no significant distress. HEENT: No scleral icterus, PERRLA, neck supple. Atraumatic. Cardiovascular: Regular rate and rhythm, no extra sounds. Pulmonary: Clear to auscultation bilaterally, normal work of breathing. Abdomen: Soft, obese, nontender, nondistended, positive bowel sounds. Musculoskeletal: Atraumatic. Non-pitting peripheral edema. Neurologic: Patient awake alert and oriented x 3 Skin: Warm, dry, no rash. No significant ecchymosis appreciated. Medical Decision & Procedures ER Provider Diagnostic Interpretation: US results per statrad and my review. US VENOUS BILATERAL LOWER EXTREMITIES: Comparison: US dated 11/22/2016. No evidence of DVT in the bilateral lower extremities. Laboratory Results 07/11/17 02:30 Red Blood Count 5.04, Mean Corpuscular Volume 85.9, Mean Corpuscular Hemoglobin 28.4, Mean Corpuscular Hemoglobin Concent 33.0, Mean Platelet Volume 9.4, Neutrophils (%) (Auto) 47.3, Lymphocytes (%) (Auto) 42.3, Monocytes (%) (Auto) 6.2, Eosinophils (%) (Auto) 3.4, Basophils (%) (Auto) 0.4, Neutrophils # (Auto) 4.60, Lymphocytes # (Auto) 4.11, Monocytes # (Auto) 0.60, Eosinophils # (Auto) 0.33, Basophils # (Auto) 0.04 07/11/17 02:30 Test 07/11/17 02:30 07/11/17 02:33 White Blood Count 9.72 K/uL (4.8-10.8) Red Blood Count 5.04 M/uL (4.2-5.4) Hemoglobin 14.3 g/dL (12.0-16.0) Hematocrit 43.3 % (37-47) Mean Corpuscular Volume 85.9 fL (80-100) Mean Corpuscular Hemoglobin 28.4 pg (25-34) Mean Corpuscular Hemoglobin Concent 33.0 g/dl (32-36) Platelet Count 334 K/uL (130-400) Mean Platelet Volume 9.4 fL (7.4-10.4) Neutrophils (%) (Auto) 47.3 % Lymphocytes (%) (Auto) 42.3 % Monocytes (%) (Auto) 6.2 % Eosinophils (%) (Auto) 3.4 % Basophils (%) (Auto) 0.4 % Neutrophils # (Auto) 4.60 K/uL (1.4-6.5) Lymphocytes # (Auto) 4.11 K/uL (1.2-3.4) Monocytes # (Auto) 0.60 K/uL (0.11-0.59) Eosinophils # (Auto) 0.33 K/uL (0-0.5) Basophils # (Auto) 0.04 K/uL (0-0.2) RDW Standard Deviation 43.6 fL (36.4-46.3) RDW Coefficient of Variation 13.9 % (11.5-14.5) Immature Granulocyte % (Auto) 0.4 % Immature Granulocyte # (Auto) 0.04 K/uL (0.00-0.02) Anion Gap 2.0 mmol/L (3-11) Est Creatinine Clear Calc Drug Dose 131.6 ml/min Estimated GFR () 110.6 Estimated GFR (Non- 95.4 BUN/Creatinine Ratio 16.1 (10-20) Calcium Level 9.1 mg/dl (8.5-10.1) Magnesium Level 2.0 mg/dl (1.8-2.4) Total Bilirubin 0.3 mg/dl (0.2-1) Direct Bilirubin < 0.1 mg/dl (0-0.2) Aspartate Amino Transf (AST/SGOT) 16 U/L (15-37) Alanine Aminotransferase (ALT/SGPT) 51 U/L (12-78) Alkaline Phosphatase 82 U/L (45-117) Total Protein 7.3 gm/dl (6.4-8.2) Albumin 3.7 gm/dl (3.4-5.0) Thyroid Stimulating Hormone (TSH) 14.600 uIu/ml (0.300-4.500) Free Thyroxine 0.85 ng/dl (0.80-1.60) Free Triiodothyronine 2.33 pg/ml (2.30-4.20) Bedside Troponin I < 0.030 ng/ml (0-0.045) Laboratory results per my review. Medications Administered Medications (Trade) Dose Ordered Sig/García Route Start Time Stop Time Status Last Admin Dose Admin Ketorolac Tromethamine (Toradol Inj) 30 mg NOW STAT IV 07/11/17 02:18 07/11/17 02:21 DC 07/11/17 02:35 30 MG Sodium Chloride 1,000 ml @ 999 mls/hr Q1H1M STAT IV 07/11/17 02:18 07/11/17 03:18 DC 07/11/17 02:35 999 MLS/HR ECG Indication: chest pain Rate (beats per minute): 72 Rhythm: sinus with SA Findings: 1st degree AV block, no acute ischemic change, other (Likely previous anterior infarct) ED Course 0216: Past medical records reviewed. The patient was evaluated in room B12B. A complete history and physical examination was performed. 0218: Ordered Sodium Chloride 1000 ml @ 999 mls/hr IV, Toradol Inj 30 mg IV. 0410: Upon reevaluation, the patient appeared to have improvement of her symptoms. I discussed findings with her. She verbalized agreement of the treatment plan. The patient was discharged home. Medical Decision Differential diagnosis: Etiologies such as DVT, musculoskeletal, infection, joint effusion, trauma, lymphedema, idiopathic, CHF, as well as others were entertained. This pt was evaluated and appeared to be in no distress. IV access was obtained and lab work was drawn. Pt was placed on the bus driver/monitor. She was given IV toradol and hydrated with NSS for her various c/o pain. Lab work reveals no significant abnormalities. TSH is elevated but free T3/T4 are normal. Pt was reevaluated and feeling improved US BLE are negative for DVT. Pt was d/c to the care of her family. She will return to the ED for worsening of symptoms or any medical concerns. Medication Reconcilliation Current Medication List: was personally reviewed by me Blood Pressure Screening Patient's blood pressure: Elevated blood pressure Blood pressure disposition: Elevated BP felt to be situational Impression Primary Impression: Lower extremity pain, bilateral Scribe Attestation The scribe's documentation has been prepared under my direction and personally reviewed by me in its entirety. I confirm that the note above accurately reflects all work, treatment, procedures, and medical decision making performed by me. Departure Information Dispostion Home / Self-Care Referrals Stephenie Parker M.D. (MEDICAL) (PCP) Forms HOME CARE DOCUMENTATION FORM, IMPORTANT VISIT INFORMATION Patient Instructions My [facility] Additional Instructions Diagnosis: Lower extremity pain Drink plenty of fluids. Tylenol 650 mg every 6 hours as needed for pain. Return to the ED for worsening of symptoms or any medical concerns. Follow up with your doctor this week for reevaluation and blood pressure recheck.
--- NOTE | 2017-07-11 07:14 | DIAGNOSTIC IMAGING REPORT ---
BILATERAL LOWER EXTREMITY VENOUS DOPPLER HISTORY: Bilateral leg pain, DVT COMPARISON STUDY: Venous Doppler 11/22/2016. FINDINGS: There is normal compressibility, flow, and augmentation within the bilateral lower extremity deep venous systems. IMPRESSION: No DVT within the right or left lower extremity. Electronically signed by: Ernie South M.D. 07/11/2017 7:12 AM Dictated Date/Time: 07/11/2017 7:12 AM
== END 2017-07-11 04:25 | disposition home or self-care (01) ==
LOC: C.EDB 01:37
DX: M79.661 Pain in right lower leg (principal); M79.662 Pain in left lower leg; I44.0 Atrioventricular block, first degree; F32.9 Major depressive disorder, single episode, unspecified; F41.9 Anxiety disorder, unspecified; J45.909 Unspecified asthma, uncomplicated; F90.9 Attention-deficit hyperactivity disorder, unspecified type; F31.9 Bipolar disorder, unspecified; N80.9 Endometriosis, unspecified; I10 Essential (primary) hypertension; E03.9 Hypothyroidism, unspecified; M54.5 Low back pain; E66.01 Morbid (severe) obesity due to excess calories; Z90.722 Acquired absence of ovaries, bilateral; Z83.2 Family history of diseases of the blood and blood-forming organs and certain disorders involving the immune mechanism; Z83.3 Family history of diabetes mellitus; Z82.49 Family history of ischemic heart disease and other diseases of the circulatory system; Z82.0 Family history of epilepsy and other diseases of the nervous system

== ENCOUNTER → 2017-08-14 | Outpatient (CLI) | payer OTHER ==
[~2017-08-14] MED LIST changes: -ATV1 PO; -BUSP15TA70 PO; -DANA200C PO; -TOPI100T20 PO; -TRAZ100T29 PO; -WLLXL300 PO
--- NOTE | 2017-08-15 06:26 | PAP/PSG TECHNICIAN REPORT ---
[facility] Adventure Challenge Instructor Polysomnogram Report Study name: None Report date: 08/15/2017 Study date: 08/14/2017 Referring Physician: Dorota IRWIN M.D. Name: RYLEE TREVINO Interpreting Physician: Amanda Irwin M.D. Date of : 1985 Adventure Challenge Instructor: Merlyn Rojas RPSGT. Sex: Female Age: 31 Study Type: PSG Weight: 307 lbs 17 in Height: 31 years, Height 5' 2.5" Neck Circum: BMI: 55.25 Medications: LEVOTHYROXINE 200 MCG, FLUTICASONE 50 MCG/ACT, AZELASTINE 0.1% NASAL SPRAY, SALINE 0.65%, ALBUTEROL, MIRALAX, Patient History 31 yr-old female here for a baseline/split study. She has a history of depression and anxiety, loud snoring, witnessed apneas, and daytime sleepiness. Her Glen scale is 6. The test was started on room air. ETCO2 testing is included in this study. Room 1 Parameters Monitored NPSG: E1-M2, E2-M1, Fp1-M2, Fp2-M1, F3-M2, F4-M2, F4-M1, C3-M2, C4-M2, C4-M1, O1-M2, O2-M2, O2-M1, T3-M2, T4-M1, P3-M2, P4-M1, CHIN1, CHIN2, HR, EKG, Legs, PFLOW, SNOR, FLOW, CFLOW, Tidal Volume, THOR, ABDO, SpO2, PLTH, CPRESS, ETCO2 Wave, ETCO2, pH Sleep Architecture Sleep Stages Time at Lights Off 10:46:48 PM STAGES Time (min.) TST (%) Time at Lights On 5:13:18 AM Wake 81.5 -- Total Recording Time (TRT) 386.50 min. N1 20.5 7 Total Sleep Period (TSP) 331.5 min. N2 172.5 57 Total Sleep Time (TST) 305.0min. N3 23.0 8 Awake Time 81.5 min. REM 89.0 29 Wake after Sleep Onset 36.5 min. Sleep Efficiency (SE) 79 % Sleep Onset Latency (RA) 45.0 min. Number of Stage 1 Shifts None Awakenings 13 Stage Changes 56 Number of REM periods 7 REM 89.0 29 REM Latency 51.5 min. NREM 216.0 71 Body Position Analysis Supine Right Left Side Prone Vertical Total Sleep Time (min.) 77.8 81.8 130.7 212.50 58.8 0.0 Total Sleep Time (%) 12% 27% 43% 70 18% N/A% Total Sleep Time REM (min.) 25.0 29.0 31.5 None 3.5 0.0 Total Sleep Time NREM (min.) 13.0 52.8 99.2 None 51.0 0.0 Intermittent Wake (min.) 39.8 26.3 11.1 None 4.3 0.0 Total Sleep Period (%) 12% None None None None None Arousals Myoclonus (PLM) * Events Count Index Events Count Index Spontaneous 19 4 Events Awake (PLMW) 52 38.3 Respiratory 13 2.6 Events Asleep w/ Arousal (PLMA) 9 1.8 PLM 9 2 Events Asleep w/o Arousal (PLMS) 210 41.3 Snoring 7 1 Total Asleep 219 43.1 Total 48 9 Total 271 42 Respiratory Analysis * CA OA MA CH H RERA Total Count 1 0 0 0 52 2 53 Index 0.2 0.0 0.0 0 10.2 0 10.8 Mean Duration 11.6 0.0 0.0 0.00 20.5 18.5 20.3 Longest Duration 11.6 0.0 0.0 0.00 0.0 19.5 51.7 Respiratory Event Summary Total Supine ~Supine Right Left Prone REM NREM Apneas Count 1 0 1 1 0 0 0 1 Index 0.2 0 0 0.7 0.0 0 0 0 Hypopneas (4% Desat) Count 52 13 39 17 15 7 43 9 Index 10.2 20.5 9 12.5 6.9 7.7 29.0 2.5 Apneas & All Hypopneas Count 53 13 40 18 15 7 43 10 Index 10.4 21 9 13 7 8 29.0 2.8 Respiratory Events (Exchange Specialist+All Hyp+RERA) Count 53 13 42 19 16 7 43 10 Index 10.8 21 9 13.9 7.3 7.7 30.3 2.8 Respiratory Related Arousal Count 13 13 7 2 2 3 8 5 Index 2.6 9 2 1 1 3 5 1 Snoring Analysis Supine Right Left Prone REM NREM Total Snore duration 32.1 min Snores count 16 632 639 402 346 1,343 1,689 Snore mean duration 1.1 Sec Snores index 25 463 293 443 233.3 373.1 332.3 TST with snoring (%) 10.5% SpO2 Analysis Total REM NREM Awake <50% 0.0 min. 0.0 min. 0.0 min. 0.0 min. 51 - 60% 0.0 min. 0.0 min. 0.0 min. 0.0 min. 61 - 70% 0.0 min. 0.0 min. 0.0 min. 0.0 min. 71 - 80% 0.0 min. 0.0 min. 0.0 min. 0.0 min. 81 - 90% 18.9 min. 15.6 min. 2.7 min. 0.7 min. 91 - 100% 361.5 min. 73.4 min. 213.2 min. 74.9 min. Average 93 93 93 95 Minimum SpO2 83 83 87 88 Desaturation Event Index 15.1 45.2 6.1 5.9 # Desat. Events below 89% 16 12 4 N/A Time(%) with Saturation below 89% 1.2 1.0 0.2 0.1 Time(min.) with Saturation below 89% 4.7 3.8 0.8 0.2 Heart Rate Analysis End Tidal CO2 Analysis Min (bpm) Max (bpm) Average (bpm) TSP (mins) % of TSP Awake 66 127 83 Above 55 mmHg 0.0 0.0 NREM 57 102 80 50-55 mmHg 0.0 0.0 REM 59 106 77 45-50 mmHg 52.5 17.2 Overall 57 106 79 40-45 mmHg 238.0 78.0 35-40 mmHg 14.1 4.6 30-35 mmHg 0.3 0.1 Average ETCO2 0.0 Supplemental O2 Values Minimum O2 level: None Value Start Time End Time Adventure Challenge Instructor Comments Ms Trevino slept in the right, left, supine and prone positions. No cardiac arrhythmias were noted. PLMs were noted. No bruxism noted. Snoring was noted and scored as a 2 on a scale of 1 through 5. (0=no snoring, 5=snoring loud enough to be heard through a closed door or down the ness way) She did not meet specific Split-Night criteria during the diagnostic portion of this study. She did not wake up to use the restroom during the night. Ms. Trevino stated that she slept about the same as usual. The final report will be interpreted and signed by a sleep physician. The completed physician report will then be placed in the patient medical record. Therapy (cm H2O) 0 TIB (min.) 386.5 TST (min.) 305.0 Sleep Onset (min.) 45.0 REM Onset From Sleep (min.) 51.5 Sleep Efficiency % 79 Wakefulness (%) 21 Wakefulness (min.) 81.5 NREM 1 (%) 7 NREM 1 (min.) 20.5 NREM 2 (%) 57 NREM 2 (min.) 172.5 NREM 3 (%) 8 NREM 3 (min.) 23.0 REM (%) 29 REM (min.) 89.0 # Arousals 48 Arousal Index 9 # Snore 1,689 Snore Index 332.3 AHI 10.4 AHI Supine 21 AHI Non-Supine 9 NREM AHI 2.8 REM AHI 29.0 RDI 10.8 # Obstructive Apnea 0 # Central Apnea 1 # Mixed Apnea 0 # Hypopneas 52 RERAs 2 Total Respiratory Events 55 Time Below SpO2 89% (min.) 4.5 Mean NREM SpO2 (%) 93 Mean REM SpO2 (%) 93 Mean Sleep SpO2 (%) 93 Min NREM SpO2 (%) 87 Min REM SpO2 (%) 83 Position Supine (min.) 77.8 Position Non-supine (min.) 267.0 LM Index Sleep 43.1 LM Index NREM 50.0 LM Index REM 26.3 Mean Heart Rate (bpm) 79 Min Heart Rate (bpm) 57
== END | disposition home or self-care (01) ==
LOC: C.NEUR 20:00
PROVIDERS: ATTEND Family Medicine
DX: G47.33 Obstructive sleep apnea (adult) (pediatric) (principal); G47.10 Hypersomnia, unspecified; E05.00 Thyrotoxicosis with diffuse goiter without thyrotoxic crisis or storm; F43.12 Post-traumatic stress disorder, chronic; E66.2 Morbid (severe) obesity with alveolar hypoventilation; R06.83 Snoring

== ENCOUNTER 2017-11-12 22:56 | Emergency (ER) | payer OTHER ==
[~2017-11-12] VITALS: Ht 157.5 cm; Wt 110.6 kg
[~2017-11-12 22:56] MED LIST changes: +ACET-1693 PO; -ACET325T96 PO
[2017-11-12 23:01] VITALS: Ht 157.5 cm; Wt 110.6 kg
[2017-11-12] MEDS ORDERED: ALBUT/IPRATROP 3MG/0.5MG NEB 3 ML VIAL INH STA (23:17)
[2017-11-12] MEDS ORDERED: ALUMINUM/MAGNESIUM SUSP 30 ML UDC PO STA (23:17)
[2017-11-12] MEDS ORDERED: POLY335019 PO (23:24)
[2017-11-12] MEDS ORDERED: DOXY100C76 PO (23:24)
[2017-11-12] MEDS ORDERED: PRED10TA PO (23:24)
[2017-11-12] MEDS ORDERED: VNTHFA/IN INH (23:24)
[2017-11-13] MEDS ORDERED: ALBUT/IPRATROP 3MG/0.5MG NEB 3 ML VIAL INH STA (00:14)
[2017-11-13 01:01] VITALS: TEMP 36.6
[2017-11-13] MEDS ORDERED: ACETAMINOPHEN 500 MG TAB PO STA (01:15)
[2017-11-13] MEDS ORDERED: FAMOTIDINE 20 MG TAB PO ONE (01:15)
--- NOTE | 2017-11-13 01:44 | EMERGENCY ROOM VISIT NOTE ---
History Report prepared by Jonel: Kendrick Schmitt Under the Supervision of: Dr. Kyra Talley D.O. First contact with patient: 23:06 Chief Complaint: RESPIRATORY PROBLEMS Stated Complaint: WHEEZING,TIGHT IN CHEST History of Present Illness The patient is a 31 year old female who presents to the Emergency Room with complaints of worsening shortness of breath beginning a few days ago. The patient describes her breathing problems as "wheezing". She also complains of sinus pressure, nausea, diarrhea, dry cough, and chest "tightness". The patient notes that she has a history of frequent sinus infections on the left after she suffered trauma to the area a few years ago. She has a history of asthma. She was seen by her PCP three days ago for similar symptoms. The patient was diagnosed with a sinus infection and was started on Doxycycline. She notes that she had a fever of 100 degrees during her visit to the PCP. She states that her breathing has worsened since she began taking the antibiotic. The patient denies any bloody stool. She has CPAP and an inhaler at home. She notes that her asthma is generally worsened with extremes of weather. The patient has not had to be hospitalized for asthma in the past. Source of History: patient Onset: A few days ago Quality: other ("wheezing") Timing: worsening Associated Symptoms: + fevers (100 degrees three days ago), + cough (dry), + chest pain ("tightness"), + nausea, + diarrhea, No hematochezia Note: Additional symptoms: sinus pressure. Review of Systems See HPI for pertinent positives & negatives. A total of 10 systems reviewed and were otherwise negative. Past Medical & Surgical Medical Problems: (1) Acute bronchitis (2) Asthma (3) Attn Deficit W Hyperact (4) Bipolar Disorder, Unspecified (5) Depression (6) Endometriosis Nos (7) Hyperglycemia (8) Hypertension (9) Hypothyroidism Nos (10) Lumbago (11) Morbid Obesity (12) Ovarian cyst (13) Polycystic Ovaries Surgical Problems: (1) History of bilateral salpingectomy (2) History of cholecystectomy (3) History of ovarian cystectomy (4) History of thyroidectomy (5) S/P cholecystectomy Family History Blood clots Cancer Diabetes mellitus Gallbladder disease Headache Heart disease Hypertension Seizures Social History Smoking Status: Never Smoker Alcohol Use: occasionally Drug Use: none Marital Status: single Housing Status: lives alone Occupation Status: unemployed Current/Historical Medications Scheduled Doxycycline Monohydrate (Monodox), 100 MG PO BID Levothyroxine Sodium (Levothyroxine Sodium), 200 MCG PO DAILY Prednisone (Prednisone), Unknown Dose PO UD Scheduled PRN Acetaminophen Tab (Tylenol), 650 MG PO Q6 PRN for Pain Albuterol Hfa (Ventolin Hfa), 2 PUFFS INH DIRECTED PRN for SOB/Wheezing Ibuprofen Tab (Advil), 400 MG PO Q6 PRN for Pain Polyethylene Glycol 3350 (Miralax), 17 GM PO DAILY PRN for Constipation Allergies Coded Allergies: Wheat (Verified Allergy, Intermediate, HIVES, 11/12/17) Food Additives (Verified Allergy, Unknown, WHEAT, 11/12/17) Metformin (Verified Allergy, Unknown, UNKN, 11/12/17) Soy Allergy (Verified Allergy, Unknown, unknown, 11/12/17) Penicillins (Verified Adverse Reaction, Intermediate, GI SYMPTOMS, 11/12/17) Morphine (Verified Adverse Reaction, Unknown, "makes me sick", 11/12/17) Physical Exam Vital Signs Date Time Temp Pulse Resp B/P (MAP) Pulse Ox O2 Delivery O2 Flow Rate FiO2 11/13/17 01:55 73 20 155/87 100 Room Air 11/13/17 01:01 36.6 87 141/87 97 Room Air 11/12/17 23:11 Room Air 11/12/17 23:01 36.4 70 18 148/72 99 Room Air Physical Exam GENERAL: alert, anxious appearing, well nourished, no distress, non-toxic EYE EXAM: normal conjunctiva, PERRL and EOM's grossly intact OROPHARYNX: no exudate, no erythema, lips, buccal mucosa, and tongue normal and mucous membranes are moist NECK: supple, no nuchal rigidity, no adenopathy, non-tender LUNGS: Mildly diminished breath sounds. Slightly coarse bilaterally. No wheezes , rhonchi or rales. HEART: no murmurs, S1 normal and S2 normal ABDOMEN: abdomen obese, soft, non-tender, normo-active bowel sounds, no masses, no rebound or guarding. BACK: Back is symmetrical on inspection and there is no deformity, no midline tenderness, no CVA tenderness. SKIN: no rashes and no bruising UPPER EXTREMITIES: upper extremities are grossly normal. LOWER EXTREMITIES: No pitting edema. NEURO EXAM: Normal sensorium, cranial nerves II-XII grossly intact, normal speech, no gross weakness of arms, no gross weakness of legs. Medical Decision & Procedures ER Provider Diagnostic Interpretation: Two View Chest X-ray interpreted by me: No cardiomegaly. No effusion. No wide mediastinum. No focal infiltrate. No pneumothorax. Medications Administered Medications (Trade) Dose Ordered Sig/García Route Start Time Stop Time Status Last Admin Dose Admin Albuterol/ Ipratropium (Duoneb) 3 ml NOW STAT INH 11/12/17 23:17 11/12/17 23:20 DC 11/12/17 23:28 3 ML Al Hydroxide/Mg Hydroxide (Maalox Susp) 30 ml NOW STAT PO 11/12/17 23:17 11/12/17 23:20 DC 11/12/17 23:28 30 ML Albuterol/ Ipratropium (Duoneb) 3 ml NOW STAT INH 11/13/17 00:14 11/13/17 00:15 DC 11/13/17 00:22 3 ML Acetaminophen (Tylenol Tab) 1,000 mg NOW STAT PO 11/13/17 01:15 11/13/17 01:16 DC 11/13/17 01:21 1,000 MG Famotidine (Pepcid Tab) 20 mg NOW ONCE PO 11/13/17 01:15 11/13/17 01:16 DC 11/13/17 01:21 20 MG ECG Indication: SOB/dyspnea Rate (beats per minute): 77 Rhythm: normal sinus Findings: Q waves (V2), no acute ischemic change, other (Normal intervals. Low voltage. ) ED Course 230: The patient was evaluated in room A10. A complete history and physical exam was performed. 0013: I reassessed the patient. She states that the tightness in her chest has improved. The patient now has expiratory wheezing to auscultation. 0112: I reassessed the patient. She no longer has expiratory wheezing, but states that she still has some mild chest tightness. 0145: Upon reevaluation, the patient is feeling better. I discussed the findings and the treatment plan with the patient. She verbalizes agreement and understanding. The patient was discharged home. Medical Decision Differential diagnosis: Etiologies such as infections, reactive airway disease, pneumonia, pneumothorax , COPD, CHF, cardiac ischemia, pulmonary embolism, musculoskeletal, gastrointestinal, as well as others were entertained. Patient most likely with asthma exacerbation secondary to recent upper respiratory infection. Patient's breathing markedly improved following administration of DuoNeb's. Discussed with patient use a spacer with her home MDI and appropriate usage of MDI. Patient already on course of steroids as provided by PCP in addition to the antibiotics. Antibiotics likely contributing to gastritis/esophagitis which is contributing to patient's chest pain. Patient's bronchospasm and asthma exacerbation could be contributing to chest pain also. Antibiotics also likely the cause of the patient's diarrhea. The symptoms to suggest colitis, doubt occult GI bleed, or perforation. Doubt bacteremia/sepsis. Patient's vital signs stable. EKG reassuring. Doubt PE. Heart score 1. Patient low risk Wells and can be ruled out with PERC criteria. Doubt occult vascular etiology contributing to chest pain. Patient well- appearing at time of discharge, ambulated with steady gait, tolerating by mouth , reported improvement in condition. Medication Reconcilliation Current Medication List: was personally reviewed by me Blood Pressure Screening Patient's blood pressure: Elevated blood pressure Blood pressure disposition: Elevated BP felt to be situational Impression Primary Impression: Asthma exacerbation Additional Impressions: Chest pain Obesity Scribe Attestation The scribe's documentation has been prepared under my direction and personally reviewed by me in its entirety. I confirm that the note above accurately reflects all work, treatment, procedures, and medical decision making performed by me. Departure Information Dispostion Home / Self-Care Referrals Stephenie Parker M.D. (MEDICAL) (PCP) Patient Instructions [facility] Additional Instructions Please continue your antibiotics and steroids as prescribed. You may use your inhaler with the spacer up to every 4 hours as needed for shortness of breath/ wheezing/chest tightness. You may consider using an [id number] acid cleat maker while you're on the antibiotics. Doxycycline can contribute to GI side effects including increased stomach irritation as well as diarrhea. Please also consider taking probiotics while using an antibiotic. Please follow up with her family doctor this week as a precaution to recheck your symptoms and make sure you're getting better. If you have any recurrent episodes of difficulty breathing, chest tightness, develop a worsening cough, noticed blood in your sputum, have fevers, worsening diarrhea, blood in your diarrhea, or you have any other new concerns, please return to the emergency room. Problem Qualifiers Primary Impression: Asthma exacerbation Asthma severity: mild Asthma persistence: intermittent Qualified Codes: J45.21 - Mild intermittent asthma with (acute) exacerbation Additional Impressions: Chest pain Chest pain type: unspecified Qualified Codes: R07.9 - Chest pain, unspecified Obesity Obesity type: unspecified obesity type Obesity classification: unspecified obesity classification Serious obesity comorbidity presence: without serious comorbidity Qualified Codes: E66.9 - Obesity, unspecified
[2017-11-13 01:55] VITALS: BP 155/87; PULSE 73; O2SAT 100
--- NOTE | 2017-11-13 06:59 | DIAGNOSTIC IMAGING REPORT ---
CHEST 2 VIEWS ROUTINE CLINICAL HISTORY: 31 years-old Female presenting with chest pain, sob. TECHNIQUE: PA and lateral views of the chest were obtained. COMPARISON: 04/05/2016. FINDINGS: Cardiomediastinal silhouette normal. Mildly low lung volumes with hypoventilatory changes. Resulting mild prominence of the bilateral lopez. No focal infiltrate. No large effusion or pneumothorax. Osseous structures normal. Cholecystectomy clips noted. IMPRESSION: 1. Mildly low lung volumes with hypoventilatory changes. Prominence of the lopez may be result of this, although this is a persistent finding. If there is clinical concern for underlying lymphadenopathy, chest CT should be obtained. Electronically signed by: Manish Hunt M.D. 11/13/2017 6:57 AM Dictated Date/Time: 11/13/2017 6:56 AM
[2018-04-04] MEDS ORDERED: CYM/30 PO (13:05)
[2018-04-04] MEDS ORDERED: BUSP5TAB59 PO (13:05)
[2018-04-04] MEDS ORDERED: MTR800 PO (13:05)
[2018-05-10] MEDS ORDERED: OXYC-57 PO (09:30)
[2018-05-10] MEDS ORDERED: CLC100 PO (09:30)
[2018-05-10] MEDS ORDERED: MYL80 PO (09:30)
[2018-05-10] MEDS ORDERED: ACET-1047 PO (09:30)
[2018-05-10] MEDS ORDERED: MTR800 PO (09:30)
== END 2017-11-13 01:58 | disposition home or self-care (01) ==
LOC: C.EDB 22:58 → C.EDA 11-13 01:58
DX: J45.901 Unspecified asthma with (acute) exacerbation (principal); R07.9 Chest pain, unspecified; E66.9 Obesity, unspecified; I10 Essential (primary) hypertension; E03.9 Hypothyroidism, unspecified; F31.9 Bipolar disorder, unspecified; J45.909 Unspecified asthma, uncomplicated; N83.209 Unspecified ovarian cyst, unspecified side; E28.2 Polycystic ovarian syndrome; Z90.49 Acquired absence of other specified parts of digestive tract; Z90.721 Acquired absence of ovaries, unilateral; Z79.899 Other long term (current) drug therapy; Z88.0 Allergy status to penicillin; Z88.5 Allergy status to narcotic agent; Z91.018 Allergy to other foods; Z83.3 Family history of diabetes mellitus; Z80.9 Family history of malignant neoplasm, unspecified; Z83.79 Family history of other diseases of the digestive system; Z82.49 Family history of ischemic heart disease and other diseases of the circulatory system; Z82.0 Family history of epilepsy and other diseases of the nervous system

== ENCOUNTER 2018-01-18 13:56 | Emergency (ER) | payer OTHER ==
[~2018-01-18] VITALS: Ht 157.5 cm; Wt 143.0 kg
[~2018-01-18 13:56] MED LIST changes: +DOXY100C76 PO; +POLY335019 PO; +PRED10TA PO; +VNTHFA/IN INH
[2018-01-18 13:58] VITALS: TEMP 37.2; Ht 157.5 cm; Wt 143.0 kg
[2018-01-18 14:48] LABS: BASO % 0.3 %; BASO ABS # 0.03 K/uL (0-0.2); EOS % 2.8 %; EOS ABS # 0.28 K/uL (0-0.5); HEMATOCRIT 45.5 % (37-47); HEMOGLOBIN 15.5 g/dL (12.0-16.0); IG# 0.06 K/uL (0.00-0.02); LYMPH % 28.5 %; MEAN CELL VOLUME 85.4 fL (80-100); MEAN CORPUSCULAR HEMOGLOBIN 29.1 pg (25-34); MEAN CORPUSCULAR HGB CONC 34.1 g/dl (32-36); MEAN PLATELET VOLUME 9.1 fL (7.4-10.4); MONO % 7.1 %; MONO ABS # 0.72 K/uL (0.11-0.59); NEUT % 60.7 %; NEUT ABS # 6.18 K/uL (1.4-6.5); PLATELET COUNT 327 K/uL (130-400); RED CELL DISTRIBUTION WIDTH CV 13.5 % (11.5-14.5); RED CELL DISTRIBUTION WIDTH SD 41.7 fL (36.4-46.3); WHITE BLOOD COUNT 10.17 K/uL (4.8-10.8)
[2018-01-18 15:11] LABS: ALBUMIN 4.1 gm/dl (3.4-5.0); CALCIUM 9.3 mg/dl (8.5-10.1); CREATININE 0.94 mg/dl (0.60-1.20); POTASSIUM 3.4 mmol/L (3.5-5.1); TOTAL PROTEIN 8.5 gm/dl (6.4-8.2)
--- NOTE | 2018-01-18 20:20 | EMERGENCY ROOM VISIT NOTE ---
History Report prepared by Jonel: Juan Jose Best Under the Supervision of: Dr. Toro Solano D.O. First contact with patient: 14:10 Chief Complaint: MENTAL HEALTH EVALUATION Stated Complaint: MENTAL History of Present Illness The patient is a 32 year old female who presents to the Emergency Room for a mental health evaluation secondary to worsening suicidal thoughts. The patient began her history with, "I am feeling down and depressed like I wanna end my life." The patient notes that these feeling started last night. She denies any particular event that could have caused these symptoms to start. She also denies having any clear plan to kill herself. The patient states that she has a history of suicidal ideation and adds that "It goes up and down." She admits to two previous suicide attempts, and that she was getting close to going this again last night. She is adamant that she has no method planned. She is agreeable and voluntary to an inpatient stay. The patient has a history of sever depression and PTSD. The patient's only other complains are pain in the right hand from carpel tunnel surgery yesterday. The patient denies headache, change in vision, fevers, chest pain, shortness of breath, nausea, vomiting, diarrhea, pain with urination, and melena. Source of History: patient Onset: Last night Position: head (Psych) Quality: other (Suicidal. Mental Health) Timing: worsening Note: Positive suicidal, without plan. Review of Systems See HPI for pertinent positives & negatives. A total of 10 systems reviewed and were otherwise negative. Past Medical & Surgical Medical Problems: (1) Acute bronchitis (2) Asthma (3) Attn Deficit W Hyperact (4) Bipolar Disorder, Unspecified (5) Depression (6) Endometriosis Nos (7) Hyperglycemia (8) Hypertension (9) Hypothyroidism Nos (10) Lumbago (11) Morbid Obesity (12) Ovarian cyst (13) Polycystic Ovaries Surgical Problems: (1) History of bilateral salpingectomy (2) History of cholecystectomy (3) History of ovarian cystectomy (4) History of thyroidectomy (5) S/P cholecystectomy Family History Blood clots Cancer Diabetes mellitus Gallbladder disease Headache Heart disease Hypertension Seizures Social History Smoking Status: Never Smoker Alcohol Use: occasionally Drug Use: none Marital Status: single Housing Status: lives alone Occupation Status: unemployed Current/Historical Medications Scheduled Doxycycline Monohydrate (Monodox), 100 MG PO BID Levothyroxine Sodium (Levothyroxine Sodium), 200 MCG PO DAILY Prednisone (Prednisone), Unknown Dose PO UD Scheduled PRN Acetaminophen Tab (Tylenol), 650 MG PO Q6 PRN for Pain Albuterol Hfa (Ventolin Hfa), 2 PUFFS INH DIRECTED PRN for SOB/Wheezing Ibuprofen Tab (Advil), 400 MG PO Q6 PRN for Pain Polyethylene Glycol 3350 (Miralax), 17 GM PO DAILY PRN for Constipation Allergies Coded Allergies: Wheat (Verified Allergy, Intermediate, HIVES, 11/12/17) Food Additives (Verified Allergy, Unknown, WHEAT, 11/12/17) Metformin (Verified Allergy, Unknown, UNKN, 11/12/17) Soy Allergy (Verified Allergy, Unknown, unknown, 11/12/17) Penicillins (Verified Adverse Reaction, Intermediate, GI SYMPTOMS, 11/12/17) Morphine (Verified Adverse Reaction, Unknown, "makes me sick", 11/12/17) Physical Exam Vital Signs Date Time Temp Pulse Resp B/P (MAP) Pulse Ox O2 Delivery O2 Flow Rate FiO2 01/18/18 19:00 80 18 133/96 98 Room Air 01/18/18 15:04 76 16 142/76 98 Room Air 01/18/18 13:58 37.2 68 20 148/91 96 Room Air Physical Exam GENERAL: Sitting up in bed, alert, well appearing, morbidly obese, no distress, non-toxic. EYE EXAM: normal conjunctiva. OROPHARYNX: no exudate, no erythema, lips, buccal mucosa, and tongue normal and mucous membranes are moist NECK: supple, no nuchal rigidity, no adenopathy, non-tender LUNGS: Clear to auscultation. Normal chest wall mechanics HEART: no murmurs, S1 normal and S2 normal ABDOMEN: abdomen soft, non-tender, normo-active bowel sounds, no masses, no rebound or guarding. BACK: Back is symmetrical on inspection and there is no deformity, no midline tenderness, no CVA tenderness. SKIN: no rashes and no bruising UPPER EXTREMITIES: upper extremities are grossly normal, with the exception of an ONEL bandage over the right hand. Hand is wrapped. LOWER EXTREMITIES: No pitting edema. NEURO EXAM: Normal sensorium, cranial nerves II-XII grossly intact, normal speech, no gross weakness of arms, no gross weakness of legs. PSYCH: Admits to wanting to kill herself. Denies having plan. Medical Decision & Procedures Laboratory Results 01/18/18 14:29 Red Blood Count 5.33, Mean Corpuscular Volume 85.4, Mean Corpuscular Hemoglobin 29.1, Mean Corpuscular Hemoglobin Concent 34.1, Mean Platelet Volume 9.1, Neutrophils (%) (Auto) 60.7, Lymphocytes (%) (Auto) 28.5, Monocytes (%) (Auto) 7.1, Eosinophils (%) (Auto) 2.8, Basophils (%) (Auto) 0.3, Neutrophils # (Auto) 6.18, Lymphocytes # (Auto) 2.90, Monocytes # (Auto) 0.72, Eosinophils # (Auto) 0.28, Basophils # (Auto) 0.03 01/18/18 14:29 Test 01/18/18 14:29 01/18/18 14:30 White Blood Count 10.17 K/uL (4.8-10.8) Red Blood Count 5.33 M/uL (4.2-5.4) Hemoglobin 15.5 g/dL (12.0-16.0) Hematocrit 45.5 % (37-47) Mean Corpuscular Volume 85.4 fL (80-100) Mean Corpuscular Hemoglobin 29.1 pg (25-34) Mean Corpuscular Hemoglobin Concent 34.1 g/dl (32-36) Platelet Count 327 K/uL (130-400) Mean Platelet Volume 9.1 fL (7.4-10.4) Neutrophils (%) (Auto) 60.7 % Lymphocytes (%) (Auto) 28.5 % Monocytes (%) (Auto) 7.1 % Eosinophils (%) (Auto) 2.8 % Basophils (%) (Auto) 0.3 % Neutrophils # (Auto) 6.18 K/uL (1.4-6.5) Lymphocytes # (Auto) 2.90 K/uL (1.2-3.4) Monocytes # (Auto) 0.72 K/uL (0.11-0.59) Eosinophils # (Auto) 0.28 K/uL (0-0.5) Basophils # (Auto) 0.03 K/uL (0-0.2) RDW Standard Deviation 41.7 fL (36.4-46.3) RDW Coefficient of Variation 13.5 % (11.5-14.5) Immature Granulocyte % (Auto) 0.6 % Immature Granulocyte # (Auto) 0.06 K/uL (0.00-0.02) Anion Gap 7.0 mmol/L (3-11) Est Creatinine Clear Calc Drug Dose 116.2 ml/min Estimated GFR () 91.7 Estimated GFR (Non- 79.2 BUN/Creatinine Ratio 15.1 (10-20) Calcium Level 9.3 mg/dl (8.5-10.1) Total Bilirubin 0.6 mg/dl (0.2-1) Direct Bilirubin 0.1 mg/dl (0-0.2) Aspartate Amino Transf (AST/SGOT) 39 U/L (15-37) Alanine Aminotransferase (ALT/SGPT) 93 U/L (12-78) Alkaline Phosphatase 101 U/L (45-117) Total Protein 8.5 gm/dl (6.4-8.2) Albumin 4.1 gm/dl (3.4-5.0) Thyroid Stimulating Hormone (TSH) 10.500 uIu/ml (0.300-4.500) Ethyl Alcohol mg/dL < 3.0 mg/dl (0-3) Urine Color YELLOW Urine Appearance CLOUDY (CLEAR) Urine pH 5.5 (4.5-7.5) Urine Specific [place] 1.021 (1.000-1.030) Urine Protein NEG (NEG) Urine Glucose (UA) NEG (NEG) Urine Ketones NEG (NEG) Urine Occult Blood NEG (NEG) Urine Nitrite NEG (NEG) Urine Bilirubin NEG (NEG) Urine Urobilinogen NEG (NEG) Urine Leukocyte Esterase MODERATE (NEG) Urine WBC (Auto) 10-30 /hpf (0-5) Urine RBC (Auto) 0-4 /hpf (0-4) Urine Hyaline Casts (Auto) 0 /lpf (0-5) Urine Epithelial Cells (Auto) >30 /lpf (0-5) Urine Bacteria (Auto) 1+ (NEG) Urine Crystals CALCIUM OXALATE (NONE Urine Test NEG (NEG) Urine Opiates Screen NEG (NEG) Urine Methadone, Qualitative NEG (NEG) Urine Barbiturates NEG (NEG) Urine Phencyclidine (PCP) Level NEG (NEG) Ur Amphetamine/Methamphetamine NEG (NEG) MDMA (Ecstasy) Screen NEG (NEG) Urine Benzodiazepines Screen POS (NEG) Urine Cocaine Metabolite NEG (NEG) Urine Marijuana (THC) NEG (NEG) Laboratory results per my review. ED Course ED COURSE: Vital signs were reviewed and showed hypertensive The patients medical record was reviewed The above diagnostic studies were performed and reviewed. ED treatments and interventions as stated above. 1410: The patient was evaluated in room A5. A complete history and physical examination was performed. 1516: I updated the patient at this time. She did provide a urine. 1856: The patient is doing well. She has no new complaints at this time. A bed search will ensue. 1950: The [facility] has found bed placement at this time. The patient will be transferred to [place]. 6: Upon reevaluation, the patient is resting in bed.I discussed my findings with the patient and she understands and agrees with the treatment plan. Based on the patients age, coexisting illnesses, exam and lab findings the decision to treat as an inpatient was made. The patient remained stable while under my care. The patient appeared well at the time of discharge. The patient will be evaluated for further management. To the [facility]. Medical Decision Differential diagnosis: Etiologies such as mood disorder, infection, hypoglycemia, electrolyte abnormalities, cardiac sources, intracerebral event, toxicologic, neurologic, as well as others were entertained. Patient is a 32-year-old female who recently had surgery on her left wrist for carpal tunnel release and presents the ER for suicidal ideations. She has no plan. CBC was unremarkable. BMP with mild hypokalemia. Bilirubin was normal. LFTs slightly elevated in the 30s-80s. TSH was elevated as it has been before in the past. She does have a history of hypothyroidism. Instructed her to follow-up with discharge from psychiatry. No acute issues at this time. Patient was evaluated by Jessi and eventually placed at the [facility] for suicidal ideations. Medication Reconcilliation Current Medication List: was personally reviewed by me Blood Pressure Screening Patient's blood pressure: Elevated blood pressure Impression Primary Impression: Mood disorder Additional Impressions: Hypothyroidism Suicidal ideation Scribe Attestation The scribe's documentation has been prepared under my direction and personally reviewed by me in its entirety. I confirm that the note above accurately reflects all work, treatment, procedures, and medical decision making performed by me. Departure Information Dispostion Mental Health Acute Care ([place]) Referrals No Doctor, Assigned (PCP) Patient Instructions My [facility] Problem Qualifiers Additional Impressions: Hypothyroidism Hypothyroidism type: unspecified Qualified Codes: E03.9 - Hypothyroidism, unspecified
[2018-01-18 20:57] VITALS: BP 148/88; PULSE 78; O2SAT 96
== END 2018-01-18 20:58 ==
LOC: C.EDB 13:57 → C.EDA 20:58
DX: R45.851 Suicidal ideations (principal); F39 Unspecified mood [affective] disorder; E03.9 Hypothyroidism, unspecified; J45.909 Unspecified asthma, uncomplicated; F90.9 Attention-deficit hyperactivity disorder, unspecified type; F31.9 Bipolar disorder, unspecified; F32.9 Major depressive disorder, single episode, unspecified; N80.9 Endometriosis, unspecified; I10 Essential (primary) hypertension; M54.5 Low back pain; E66.01 Morbid (severe) obesity due to excess calories; E28.2 Polycystic ovarian syndrome; Z80.9 Family history of malignant neoplasm, unspecified; Z83.3 Family history of diabetes mellitus; Z83.79 Family history of other diseases of the digestive system; Z82.49 Family history of ischemic heart disease and other diseases of the circulatory system; Z79.899 Other long term (current) drug therapy; Z88.8 Allergy status to other drugs, medicaments and biological substances; Z88.0 Allergy status to penicillin; Z88.5 Allergy status to narcotic agent; Z91.018 Allergy to other foods

== ENCOUNTER → 2018-03-15 | Outpatient (CLI) | payer OTHER ==
--- NOTE | 2018-03-16 06:41 | PAP/PSG TECHNICIAN REPORT ---
[facility] Police Liaison Officer Polysomnogram Report Study name: None Report date: 03/16/2018 Study date: 03/15/2018 Referring Physician: Jillian Mcfadden Name: RYLEE TREVINO Interpreting Physician: Janet Kent M.D. Date of : 1985 Police Liaison Officer: Merlyn Rojas [facility]. Sex: Female Age: 32 Study Type: PSG Weight: 303 lbs Height: 32 years, Height 5' 2.5" BMI: 54.53 Medications: LEVOTHYROXIE 200 MCG, OCEAN NASAL SPRAY 0.65%, ALBUTEROL HFA, MIRALAX Patient History 32 yr-old female here for a baseline/split study. She has a history of insomnia, staying asleep, and daytime sleepiness. Her [place] scale is 6. The test was started on room air. ETCO2 testing is included in this study. Room 3 Parameters Monitored NPSG: E1-M2, E2-M1, Fp1-M2, Fp2-M1, F3-M2, F4-M2, F4-M1, C3-M2, C4-M2, C4-M1, O1-M2, O2-M2, O2-M1, T3-M2, T4-M1, P3-M2, P4-M1, CHIN1, CHIN2, HR, EKG, Legs, PFLOW, SNOR, FLOW, CFLOW, Tidal Volume, THOR, ABDO, SpO2, PLTH, CPRESS, ETCO2 Wave, ETCO2, pH Sleep Architecture Sleep Stages Time at Lights Off 10:42:22 PM STAGES Time (min.) TST (%) Time at Lights On 5:36:52 AM Wake 85.0 -- Total Recording Time (TRT) 415.00 min. N1 28.0 8 Total Sleep Period (TSP) 392.0 min. N2 192.5 58 Total Sleep Time (TST) 329.5min. N3 16.0 5 Awake Time 85.0 min. REM 93.0 28 Wake after Sleep Onset 62.5 min. Sleep Efficiency (SE) 79 % Sleep Onset Latency (RA) 22.5 min. Number of Stage 1 Shifts None Awakenings 17 Stage Changes 81 Number of REM periods 8 REM 93.0 28 REM Latency 79.5 min. NREM 236.5 72 Body Position Analysis Supine Right Left Side Prone Vertical Total Sleep Time (min.) 155.8 163.1 40.0 203.03 0.0 0.0 Total Sleep Time (%) 38% 49% 12% 62 0% N/A% Total Sleep Time REM (min.) 13.4 66.3 13.3 None 0.0 0.0 Total Sleep Time NREM (min.) 113.1 96.7 26.7 None 0.0 0.0 Intermittent Wake (min.) 29.3 24.6 31.1 None 0.0 0.0 Total Sleep Period (%) 34% None None None None None Arousals Myoclonus (PLM) * Events Count Index Events Count Index Spontaneous 24 4 Events Awake (PLMW) 196 138.4 Respiratory 25 4.9 Events Asleep w/ Arousal (PLMA) 13 2.4 PLM 13 2 Events Asleep w/o Arousal (PLMS) 394 71.7 Snoring 5 1 Total Asleep 407 74.1 Total 67 12 Total 603 87 Respiratory Analysis * CA OA MA CH H RERA Total Count 1 1 0 0 74 2 76 Index 0.2 0.2 0.0 0 13.5 0 14.2 Mean Duration 10.0 14.2 0.0 0.00 19.8 15.7 19.5 Longest Duration 10.0 14.2 0.0 0.00 0.0 16.9 51.3 Respiratory Event Summary Total Supine ~Supine Right Left Prone REM NREM Apneas Count 2 0 2 1 1 N/A 1 1 Index 0.4 0 1 0.4 1.5 N/A 1 0 Hypopneas (4% Desat) Count 74 19 55 35 20 N/A 54 20 Index 13.5 9.0 16 12.9 30.0 N/A 34.8 5.1 Apneas & All Hypopneas Count 76 19 57 36 21 N/A 55 21 Index 13.8 9 17 13 32 N/A 35.5 5.3 Respiratory Events ([employer]+All Hyp+RERA) Count 76 21 57 36 21 N/A 55 21 Index 14.2 10 17 13.2 31.5 N/A 35.5 5.8 Respiratory Related Arousal Count 25 21 17 9 8 N/A 22 5 Index 4.9 5 5 3 12 N/A 14 1 Snoring Analysis Supine Right Left Prone REM NREM Total Snore duration 22.5 min Snores count 292 875 111 N/A 117 1,161 1,278 Snore mean duration 1.1 Sec Snores index 139 322 167 N/A 75.5 294.5 232.7 TST with snoring (%) 6.8% SpO2 Analysis Total REM NREM Awake <50% 0.0 min. 0.0 min. 0.0 min. 0.0 min. 51 - 60% 0.0 min. 0.0 min. 0.0 min. 0.0 min. 61 - 70% 0.0 min. 0.0 min. 0.0 min. 0.0 min. 71 - 80% 0.1 min. 0.1 min. 0.0 min. 0.0 min. 81 - 90% 27.1 min. 17.8 min. 6.7 min. 2.6 min. 91 - 100% 373.4 min. 75.0 min. 228.9 min. 69.5 min. Average 93 93 93 94 Minimum SpO2 79 79 85 81 Desaturation Event Index 19.5 48.4 10.4 13.4 # Desat. Events below 89% 38 31 7 0 Time(%) with Saturation below 89% 2.8 2.4 0.2 0.2 Time(min.) with Saturation below 89% 11.2 9.5 0.8 0.9 Heart Rate Analysis End Tidal CO2 Analysis Min (bpm) Max (bpm) Average (bpm) TSP (mins) % of TSP Awake 65 127 86 Above 55 mmHg 0.0 0.0 NREM 66 112 84 50-55 mmHg 0.0 0.0 REM 56 103 82 45-50 mmHg 0.0 0.0 Overall 56 112 83 40-45 mmHg 62.4 18.9 35-40 mmHg 226.9 68.9 30-35 mmHg 19.4 5.9 Average ETCO2 0.3 Supplemental O2 Values Minimum O2 level: None Value Start Time End Time Police Liaison Officer Comments Ms. Trevino slept in the right, left, and supine positions. No cardiac arrhythmias were noted. PLMs were noted. No bruxism noted. Snoring was noted and scored as a 2 on a scale of 1 through 5. (0=no snoring, 5=snoring loud enough to be heard through a closed door or down the ness way). She did not meet specific Split-Night criteria during the diagnostic portion of this study. She awoke to use the restroom one time during the night. Ms. Trevino stated that she slept about the same as usual. The final report will be interpreted and signed by a sleep physician. The completed physician report will then be placed in the patient medical record. Therapy (cm H2O) 0 TIB (min.) 414.5 TST (min.) 329.5 Sleep Onset (min.) 22.5 REM Onset From Sleep (min.) 79.5 Sleep Efficiency % 79 Wakefulness (%) 21 Wakefulness (min.) 85.0 NREM 1 (%) 8 NREM 1 (min.) 28.0 NREM 2 (%) 58 NREM 2 (min.) 192.5 NREM 3 (%) 5 NREM 3 (min.) 16.0 REM (%) 28 REM (min.) 93.0 # Arousals 67 Arousal Index 12 # Snore 1,278 Snore Index 232.7 AHI 13.8 AHI Supine 9 AHI Non-Supine 17 NREM AHI 5.3 REM AHI 35.5 RDI 14.2 # Obstructive Apnea 1 # Central Apnea 1 # Mixed Apnea 0 # Hypopneas 74 RERAs 2 Total Respiratory Events 80 Time Below SpO2 89% (min.) 10.3 Mean NREM SpO2 (%) 93 Mean REM SpO2 (%) 93 Mean Sleep SpO2 (%) 93 Min NREM SpO2 (%) 85 Min REM SpO2 (%) 79 Position Supine (min.) 155.8 Position Non-supine (min.) 203.0 LM Index Sleep 74.1 LM Index NREM 93.6 LM Index REM 24.5 Mean Heart Rate (bpm) 83 Min Heart Rate (bpm) 56
--- NOTE | 2018-03-28 21:20 | Sleep Study ---
Sleep Study Report Date of Service: 03/28/18 Sleep Study Report [facility] Diagnostic Polysomnogram Interp Report Study name: None Report date: 03/28/2018 Study date: 03/15/2018 Referring Physician: Jillian Mcfadden Name: RYLEE TREVINO Interpreting Physician: Janet Kent M.D. Date of : 1985 Hand Tool Lapper: Merlyn Rojas [facility]. Sex: Female Age: 32 StudyType: PSG Weight: 303 lbs Height: 32 years, Height 5' 2.5" BMI: 54.53 DIAGNOSTIC POLYSOMNOGRAPHY REPORT This patient was referred by Jillian Mcfadden. RYLEE TREVINO, tested at 9:27:52 PM on 03/15/2018, is a 32 year old female, date of 1985 who is 5' 2.5" and 303 lbs, with a BMI of 54.53, which is elevated. This patient has an [place] Sleepiness Score of 6, which is normal. Study scored by: Janet Kent M.D. IMPRESSION: 1-Mild obstructive sleep apnea syndrome exacerbated to the severe degree during REM. These respiratory events were associated with oxygen desaturations (erin of 79 %). 2- Frequent periodic limb movements not causing arousal from sleep were observed , which is a non-specific finding. These can be seen in a variety of conditions such as normal aging, primary sleep disorders such as restless legs syndrome, sleep apnea, and narcolepsy, or in association with certain medications. Clinical correlation is advised. 3-Abnormal sleep architecture likely due to respiratory events, limb movements and first night effect. RECOMMENDATIONS: 1-CPAP titration study. 2-Avoidance of alcohol and sedatives. Past medical history: Insomnia, Hypothyroidism. Medications: LEVOTHYROXIE 200 MCG, OCEAN NASAL SPRAY 0.65%, ALBUTEROL HFA, MIRALAX Sleep Study Summary Procedure: The study was attended continuously by a polysomnography technologist. The monitored parameters included: left (E1-M2) and right (E2-M1) EOG, frontal (F3- M2 & F4-M1), central (C3-M2 & C4-M1) and occipital (O1-M2 & O2-M1) EEG, mental and submental EMG, left and right anterior tibialis EMG, left and right extensor digitorum EMG, single ECG waveform, snoring, continuous airflow with thermistor and nasal pressure transducer, chest and abdominal effort, oxygen saturation, EtCO2, and body position via video monitoring. Hypopnea definition: The nasal pressure signal excursions (or those of the alternative hypopnea sensor) drop by 30% of baseline. The duration of this drop occurs for a period lasting at least 10 seconds. There is a 4% desaturation from pre-event baseline or the event is associated with an arousal. At least 90 % of the event's duration must meet the amplitude reduction criteria for hypopnea. Sleep Data: This patient displayed normal latency to sleep onset of 22.5 min., with disrupted sleep architecture with sleep stage percentages of 7% N1, 49% N2, 4% N3, and 24% REM, with reduced sleep efficiency of 79% and with Total Sleep Time of 329.5 minutes. Respiratory Data: 76 respiratory events were observed. The apnea-hypopnea index was 13.8 which are mild. The amounts of apneas/hypopneas are not evenly distributed throughout the study, with a non-REM RDI of 5.8 and a REM RDI of 35.5. Respiratory events were more frequent in the supine position. The longest respiratory event duration was 51.3 sec. Minimum NREM oxygen saturation was 85% ; minimum REM oxygen saturation was 79%. Time spent below SaO2 of 90% was 0.2 min. The time spent with SaO2 of 80-89% was 10 min. Snoring was noted to be present. Limb Movement: 407 limb movements were observed for an index of 74.1. Arousal: 67 arousals were observed, with a total index of 12. There were 24 spontaneous arousals, 25 respiratory arousals (respiratory arousal index of 4.9) , and 13 limb movement arousals (limb movement arousal index of 2). Cardiac: The average heart rate during sleep was 84 beats per minute, with a range of 56 to 112. During wake, the heart rate ranged from 65 to 127 beats per minute. There were no arrhythmias noted. Abdias-Osorio breathing was absent. EEG: There were no epileptic form features reported. Behavioral Observation: The patient reported that their sleep for this study was the same in duration and of the same quality as usual. The patient did not display unusual behaviors. Thank you for the courtesy of this referral. Dr Janet Kent Board Certified in Internal/ Sleep Medicine
== END | disposition home or self-care (01) ==
LOC: C.NEUR 21:00
PROVIDERS: ATTEND Nurse Practitioner Family
DX: G47.33 Obstructive sleep apnea (adult) (pediatric) (principal); G47.10 Hypersomnia, unspecified